=== PATIENT | female | born 1975 ===

== ENCOUNTER 2018-01-15 06:07 | Inpatient (IN) | payer BC ==
[2018-01-14 12:14] VITALS: BMI 25.4
[2018-01-15] MEDS ORDERED: Lactated Ringer's 1,000 ML IV ONE ×3 (06:45→11:08)
[2018-01-15] MEDS ORDERED: cefOXitin IV 1 gm in Dextrose 1 GM/50 ML BAG IVPB ONE (07:14)
[2018-01-15] MEDS ORDERED: Propofol 10 mg/ml Inj (20 ML) ONE (07:17)
[2018-01-15] MEDS ORDERED: Rocuronium 10 mg/ml (5 ml) ONE ×2 (07:21→09:55)
[2018-01-15] MEDS ORDERED: Lidocaine 4% (Laryng-O-Jet) Kit MM ONE (07:21)
[2018-01-15] MEDS ORDERED: ePHEDrine 50 mg/ml Inj ONE (07:21)
[2018-01-15] MEDS ORDERED: Midazolam 2 MG/2 ML VIAL ONE (07:21)
[2018-01-15] MEDS ORDERED: Succinylcholine 200 mg/10 ml Inj IV ONE (07:21)
--- NOTE | 2018-01-15 07:45 | CP.PCM.HP ---
History of Present Illness - History of Present Illness History of Present Illness: 42 y/o female with hx of BTL who has been experiencing very heavy periods and sono showed multiple fibroids Pt had requested KIMBERLY She had been counseled about other options including medical [place] myomectomy but refers wants permanent removal of wound Aware of infertility. Present on Admission - Present on Admission Any Indicators Present on Admission: No History of DVT/PE: No History of Uncontrolled Diabetes: No Urinary Catheter: No Decubitus Ulcer Present: No Review of Systems - Constitutional Additional comments: hx of anemia - Breasts Additional comments: no palpable masses or discharge Mammogram 08/2017 benign results - Reproductive: Female Reproductive:Female: As Per HPI, Heavy Menses Additional comments: c/s x2 and BTL - Menstruation Menstruation: Heavy Menses, Abnormal Vaginal Bleeding - Hematologic/Lymphatic Additional comments: hx of anemia Past Patient History - Past Medical History & Family History Past Medical History?: Yes Past Family History: Reviewed and not pertinent - Past Social History Smoking Status: Never Smoked Chewing Tobacco Use: No Alcohol: Social Drugs: Denies - CARDIAC Hx Cardiac Disorders: No Hx Heart Attack: No Hx Hypercholesterolemia: Yes - PULMONARY Hx Respiratory Disorders: No - NEUROLOGICAL Hx Neurological Disorder: No HX Cerebrovascular Accident: No Hx Transient Ischemic Attacks (TIA): No - HEENT Hx HEENT Problems: No - RENAL Hx Chronic Kidney Disease: No - ENDOCRINE/METABOLIC Hx Endocrine Disorders: No - HEMATOLOGICAL/ONCOLOGICAL Hx Blood Disorders: Yes Hx Anemia: Yes (IRON DEFICIENCY ANEMIA) Hx Blood Transfusions: No - INTEGUMENTARY Hx Dermatological Problems: No - MUSCULOSKELETAL/RHEUMATOLOGICAL Hx Musculoskeletal Disorders: No Hx Falls: No Hx Fractures: No - GASTROINTESTINAL Hx Gastrointestinal Disorders: Yes Hx Hemorrhoids: Yes (DX. 1 YEAR AGO WITH COLONOSCOPY) - GENITOURINARY/GYNECOLOGICAL Hx Genitourinary Disorders: Yes Other/Comment: BTL : 2 Para: 2 - PSYCHIATRIC Hx Psychophysiologic Disorder: No Hx Substance Use: No - SURGICAL HISTORY Hx Surgeries: Yes Hx Section: Yes (X2) Hx Tubal Ligation: Yes Other/Comment: C/S x2 - ANESTHESIA Hx Anesthesia: Yes Hx Anesthesia Reactions: No Hx Malignant Hyperthermia: No Has any member of the family had a problem w/ anesthesia?: No Meds Allergies/Adverse Reactions: Allergies Allergy/AdvReac Type Severity Reaction Status Date / Time No Known Allergies Allergy Verified 01/15/18 07:14 Physical Exam - Constitutional Appears: Well, No Acute Distress - Head Exam Head Exam: ATRAUMATIC - Neck Exam Neck exam: Positive for: Full Rom - Respiratory Exam Respiratory Exam: NORMAL BREATHING PATTERN - Cardiovascular Exam Cardiovascular Exam: REGULAR RHYTHM - GI/Abdominal Exam GI & Abdominal Exam: Normal Bowel Sounds - Exam External exam: NORMAL EXTERNAL EXAM Speculum exam: NORMAL SPECULUM EXAM Bimanual exam: Uterine Enlargement - Extremities Exam Extremities exam: Positive for: full ROM Additional comments: no edema or calf tenderness - Neurological Exam Neurological exam: Alert, Oriented x3 Results - Vital Signs Recent Vital Signs: Last Vital Signs Temp 98.4 F 01/15/18 07:00 Pulse 86 01/15/18 07:20 Resp 18 01/15/18 07:00 BP 109/72 01/15/18 07:00 Pulse Ox 100 01/15/18 07:00 Assessment & Plan - Assessment and Plan (Free Text) Assessment: severe menorrhagia Fibroid uterus Plan: For KIMBERLY - Date & Time Date: 01/15/18 Time: 07:58
[2018-01-15] MEDS ORDERED: Dexamethasone 4 mg/1 ml ONE (08:55)
[2018-01-15] MEDS ORDERED: Sodium Chloride 0.9% 1,000 ML IV ONE (09:50)
[2018-01-15] MEDS ORDERED: Neostigmine 1:1000 (1 mg/ml) Inj ONE (10:16)
[2018-01-15] MEDS ORDERED: DiphenhydrAMINE 50 mg/ml Inj IVP PRN (11:34)
[2018-01-15] MEDS ORDERED: Naloxone 0.4 mg/ml Inj (Adult) IVP PRN (11:35)
[2018-01-15] MEDS: HYDROmorphone 0.5 mg/0.5 ml ISec IVP PRN ×2 (11:55→12:06)
[2018-01-15] MEDS: Lactated Ringer's 1,000 ML IV SCH ×2 (15:32→20:04)
[2018-01-15] MEDS ORDERED: Lactated Ringer's 1,000 ML IV SCH (16:00)
[2018-01-15] MEDS: cefOXitin IV 1 gm in Dextrose 1 GM/50 ML BAG IVPB SCH (16:38)
[2018-01-16] MEDS: cefOXitin IV 1 gm in Dextrose 1 GM/50 ML BAG IVPB SCH (00:01)
[2018-01-16] MEDS: Lactated Ringer's 1,000 ML IV SCH (05:05)
[2018-01-16 07:52] LABS: HEMOGLOBIN 8.4 g/dL (12.0-16.0); MEAN CORPUSCULAR HEMOGLOBIN 28.3 pg (27.0-31.0); MEAN CORPUSCULAR HGB CONC 32.5 g/dL (33.0-37.0); RBC 2.98 Mil/uL (3.80-5.20); RED CELL DISTRIBUTION WIDTH 14.1 % (11.5-14.5); WHITE BLOOD COUNT 16.8 K/uL (4.8-10.8)
[2018-01-16] MEDS ORDERED: cefOXitin IV 1 gm in Dextrose 1 GM/50 ML BAG IVPB SCH (10:00)
--- NOTE | 2018-01-16 12:13 | CP.PCM.PN ---
Subjective - Date & Time of Evaluation Date of Evaluation: 01/16/18 Time of Evaluation: 12:11 - Subjective Subjective: Denies c/f, or vomiting but had some nausea this am, voiding well Objective - Vital Signs/Intake and Output Vital Signs (last 24 hours): Temp Pulse Resp BP Pulse Ox 97.0 F L 85 20 98/51 L 100 01/16/18 08:34 01/16/18 08:34 01/16/18 08:34 01/16/18 08:34 01/16/18 08:34 Intake and Output: 01/16/18 01/16/18 06:59 18:59 Intake Total 1670 Output Total 2750 600 Balance -1080 -600 - Medications Medications: Current Medications Lactated Ringer's (Lactated Ringer's) 1,000 mls @ 125 mls/hr IV .Q8H TAO Last Admin: 01/16/18 05:05 Dose: 125 mls/hr Naloxone HCl (Narcan) 0.1 mg IVP Q2M PRN PRN Reason: Opiate reversal Ondansetron HCl (Zofran Inj) 4 mg IVP Q4 PRN PRN Reason: Nausea/Vomiting Last Admin: 01/15/18 21:20 Dose: 4 mg - Labs Labs: 01/16/18 05:30 - Constitutional Appears: No Acute Distress - Head Exam Head Exam: ATRAUMATIC - Respiratory Exam Respiratory Exam: NORMAL BREATHING PATTERN - GI/Abdominal Exam Additional comments: soft ND depressible Dressing intact no active bleeding - Extremities Exam Extremities Exam: Full ROM Additional comments: no leg edema or calf tenderness - Neurological Exam Neurological Exam: Alert, Awake, Oriented x3 - Psychiatric Exam Psychiatric exam: Normal Affect - Additional Findings Additional findings: sitting in chair at bed side in NAD Assessment and Plan - Assessment and Plan (Free Text) Assessment: stable POD #1, anemia Plan: advance diet as tolerated and OOB and ambulation Start po iron and stool softener Continue po care and present management
[2018-01-16] MEDS: Oxycodone/Acetaminophen 5/325 mg Tab PO PRN (16:12)
[2018-01-16 17:47] VITALS: RESP 20
[2018-01-17] MEDS: Oxycodone/Acetaminophen 5/325 mg Tab PO PRN (01:24)
--- NOTE | 2018-01-17 03:32 | OP ---
PROCEDURE DATE: 01/15/2018 PREOPERATIVE DIAGNOSES: 1. Severe menorrhagia. 2. Fibroid uterus. POSTOPERATIVE DIAGNOSES: 1. Severe menorrhagia. 2. Severe massive pelvic and abdominal adhesions. PROCEDURES PERFORMED: 1. Exploratory laparotomy with total abdominal hysterectomy, left salpingo-oophorectomy. 2. Extensive lysis of adhesions. SURGEON: Bradley Ware MD [employer] CHIEF: Dr. Love who was there for the entire duration of the case. Superintendent Compressor Stations needed in the opening of abdomen assisting in the procedure and closing up the abdomen in this major abdominal case. ANESTHESIA USED: General endotracheal by Dr. Renee. ESTIMATED BLOOD LOSS: 400 mL. DRAINS USED: None. REPLACEMENT USED: None. FINDINGS: 1. Uterus appears irregular, mobile, large and bulky, about 14 to 16-week size with multiple fibroids and adhesions to the omentum and low pelvic weldon and anterior abdominal wall. 2. Severe adhesions of the bladder, the bowel and the omentum to the anterior abdominal wall and to the uterus and fibroids. 3. Left ovary engaged in adhesions and adhering to the complex fibroids on the left side. 4. Right ovary appeared grossly within normal limits to the inspection. 5. Total abdominal hysterectomy and left salpingo-oophorectomy done without any complications. 6. Lysis of adhesions performed. DESCRIPTION OF PROCEDURE: The patient was taken to the operating room and placed on the operating table in a supine position. Following induction of general endotracheal anesthesia, the patient was then replaced in a supine position. Kothari catheter was then inserted into the bladder, was draining clear fluid. Venodyne boots were applied to both legs, and the abdomen was then draped and prepped in the usual sterile manner. At this point after draping and prepping the abdomen, a Pfannenstiel incision was then made along the edges of the previous incision using sharp dissection. The incision was then extended down to the subcutaneous tissue also using sharp dissection. Fascia was then identified, was then entered at the midline. The incision of the fascia was then extended laterally on each direction using sharp dissection. At this time, the rectus muscle was then slid at the midline and layer by layer, we then proceeded to enter the abdomen. At this time, massive adhesions noted to be present involving the omentum, the uterus, and fibroids of the anterior abdominal wall. These adhesions were carefully lysed using blunt and sharp dissection. The incision in this area was then extended superiorly and inferiorly under direct visualization. Following this, the bladder was then identified, was then retracted inferiorly using the Ben retractor. The uterus was then partially exteriorized to provide better visualization. The left ovary appeared in case adherent to the uterus and fibroids and at this time, decision for the left oophorectomy was then performed. At this time, we then proceeded to identify the left infundibulopelvic ligament, which was then doubly clamped, cut and ligated using first 0 Vicryl free tie and then 0 Vicryl suture. Those isolated the ovary from the pelvic wall. The right tube and ovary appear grossly within normal limits to inspection bilaterally. The uterine ligament was then identified. It was then doubly clamped, cut and ligated using 0 Vicryl sutures. At this time, the ovarian ligament was then dissected down on the right side. It was then doubly clamped, cut, ligated using 0 Vicryl sutures. Same procedure was then performed on the contralateral side without any complications. The bladder was then pushed down. Some adhesions noted to be present and lysed using the bladder flap to the lower cervical area of the uterus. The bladder was then pushed down further, and we then proceeded to identify the right uterine artery, was then doubly clamped, cut, and ligated using 0 Vicryl. Same procedure was then carefully performed on the left lateral side without any complications. The mesosalpinx was then doubly clamped on the right side using Regulo clamps, cut, and ligated also using 0 Vicryl suture in a continuous manner. Following this, we then proceeded to do the same thing on the opposite side without any complications. At the junction of the vaginal cervical area, the vagina was then entered posteriorly, and the cervix was circumscribed on the specimen consisting of large fibroid uterus. Cervix, left tube and ovary were then removed in toto. The vaginal cuff was then held using multiple T-clamps, and angle sutures were placed on the right and left vaginal angles using 0 Vicryl suture in a [id number] manner. The vaginal cuff was then run using a 0 Vicryl suture in continuous interlocking manner. We then proceeded to close the vaginal cuff using several interrupted 0 Vicryl sutures in a [id number] manner. Hemostasis checked and found to be well secured. The pelvic cavity was then carefully irrigated using saline solution. All operative areas checked, hemostatically secured. At this time, we then proceeded to place an Intercede and a Surgicel on the vaginal cuff to obtain complete hemostasis and to prevent further adhesions. All operative areas were checked. The omentum was checked. No bleeding noted. The abdomen was then closed using 0 Vicryl suture in a continuous manner. Following this, the fascia was then identified, was then approximated using 0 PDS suture in a continuous manner. Fascia was then checked and found to be free of defects. Subcutaneous tissues were irrigated using saline solution and approximated using several interrupted 2-0 plain sutures. The skin was then approximated using skin cynthia. The patient tolerated the procedure well. There were no complications. Clear fluid noted to be present in the Kothari bag at this time. Sponge, instrument, and needle counts were correct x3. The patient was then transferred to the recovery room in satisfactory condition. Bradley Ware MD [email or web address]
[2018-01-17 05:45] VITALS: O2SAT 100
[2018-01-17 08:23] VITALS: TEMP 98.8
[2018-01-17] MEDS ORDERED: Chlorhexidine Gluconate 1 APPL/PKT TP ONE (10:27)
[2018-01-17 13:01] VITALS: BP 115/57; PULSE 90
--- NOTE | 2018-01-17 14:39 | CP.PCM.PN ---
Subjective - Date & Time of Evaluation Date of Evaluation: 01/17/18 Time of Evaluation: 14:36 - Subjective Subjective: BM+, voiding well Denies N/V, no C/F Feels better Objective - Vital Signs/Intake and Output Vital Signs (last 24 hours): Temp Pulse Resp BP Pulse Ox 98.8 F 90 20 115/57 L 100 01/17/18 13:00 01/17/18 13:00 01/17/18 13:00 01/17/18 13:00 01/17/18 13:00 - Medications Medications: Current Medications Docusate Sodium (Colace) 100 mg PO BID [facility] Last Admin: 01/17/18 08:03 Dose: 100 mg Ferrous Sulfate (Feosol) 325 mg PO BID [facility] Last Admin: 01/17/18 08:04 Dose: 325 mg Lactated Ringer's (Lactated Ringer's) 1,000 mls @ 125 mls/hr IV .Q8H [facility] Last Admin: 01/16/18 05:05 Dose: 125 mls/hr Ibuprofen (Motrin Tab) 600 mg PO Q6 PRN PRN Reason: Pain, Mild (1-3) Last Admin: 01/17/18 06:57 Dose: 600 mg Naloxone HCl (Narcan) 0.1 mg IVP Q2M PRN PRN Reason: Opiate reversal Ondansetron HCl (Zofran Inj) 4 mg IVP Q4 PRN PRN Reason: Nausea/Vomiting Last Admin: 01/15/18 21:20 Dose: 4 mg Oxycodone/Acetaminophen (Percocet 5/325 Mg Tab) 1 tab PO Q4 PRN PRN Reason: Pain, moderate (4-7) Stop: 01/19/18 16:00 Last Admin: 01/17/18 01:24 Dose: 1 tab - Labs Labs: 01/16/18 05:30 - Constitutional Appears: Well, No Acute Distress - Head Exam Head Exam: ATRAUMATIC - Respiratory Exam Respiratory Exam: NORMAL BREATHING PATTERN - Cardiovascular Exam Cardiovascular Exam: REGULAR RHYTHM - GI/Abdominal Exam Additional comments: soft, depressible not distended no rebound Dressing intact removed cynthia in place no suppt or active bleeding - Extremities Exam Additional comments: no leg edema or calf tenderness - Neurological Exam Neurological Exam: Alert, Awake, Oriented x3 Assessment and Plan - Assessment and Plan (Free Text) Assessment: stable Plan: D/C home in stable and improved conditiion and will follow up office 1 wk Rx for percocet given
--- NOTE | 2018-01-17 14:44 | CP.PCM.DIS ---
Provider - Provider Date of Admission: 01/15/18 11:55 Attending physician: Bradley Ware MD Primary care physician: Johnathan Ross MD Time Spent in preparation of Discharge (in minutes): 5 Diagnosis - Discharge Diagnosis (1) Leiomyoma of uterus Status: Chronic (2) Menorrhagia Status: Acute (3) Pelvic adhesions Status: Chronic Hospital Course - Lab Results Lab Results: Most Recent Lab Values WBC 16.8 K/uL (4.8-10.8) H D 01/16/18 05:30 RBC 2.98 Mil/uL (3.80-5.20) L 01/16/18 05:30 Hgb 8.4 g/dL (12.0-16.0) L D 01/16/18 05:30 Hct 25.9 % (34.0-47.0) L 01/16/18 05:30 MCV 87.0 fl (81.0-99.0) 01/16/18 05:30 MCH 28.3 pg (27.0-31.0) 01/16/18 05:30 MCHC 32.5 g/dL (33.0-37.0) L 01/16/18 05:30 RDW 14.1 % (11.5-14.5) 01/16/18 05:30 Plt Count 400 K/uL (130-400) 01/16/18 05:30 - Hospital Course Hospital Course: underwent KIMBERLY LSO and extensive lysis of adhessions and post op course was uneventfull Discharge Exam - Head Exam Head Exam: ATRAUMATIC - Neck Exam Neck exam: Full Rom - Respiratory Exam Respiratory Exam: NORMAL BREATHING PATTERN - GI/Abdominal Exam GI & Abdominal Exam: Normal Bowel Sounds, Soft Additional comments: Incision clean and dry no active bleeding or sign of infection - Extremities Exam Extremities exam: full ROM Additional comments: no leg edema or calf tenderness - Back Exam Back exam: FULL ROM - Neurological Exam Neurological exam: Alert, Normal Gait, Oriented x3 - Psychiatric Exam Psychiatric exam: Normal Affect Discharge Plan - Follow Up Plan Instructions: Hysterectomy (DC) Additional Instructions: pelvic and bed rest Referrals: Johnathan Ross MD [Primary Care Provider] -
== END 2018-01-17 15:30 | disposition home or self-care (01) | DRG 743 ==
LOC: H.OPSURG 06:07 → H.PEDS 11:55
PROVIDERS: ADMIT Specialist; ATTEND Specialist
PROC: 0UT10ZZ Resection of Left Ovary, Open Approach (ICD-10-PCS; 2018-01-15)
PROC: 0UT60ZZ Resection of Left Fallopian Tube, Open Approach (ICD-10-PCS; 2018-01-15)
PROC: 0DNU0ZZ Release Omentum, Open Approach (ICD-10-PCS; 2018-01-15)
PROC: 0DNW0ZZ Release Peritoneum, Open Approach (ICD-10-PCS; 2018-01-15)
PROC: 0UT90ZZ Resection of Uterus, Open Approach (ICD-10-PCS; principal; 2018-01-15 07:45)
DX: D25.9 Leiomyoma of uterus, unspecified (principal); N73.6 Female pelvic peritoneal adhesions (postinfective); N92.0 Excessive and frequent menstruation with regular cycle; D50.9 Iron deficiency anemia, unspecified; E78.00 Pure hypercholesterolemia, unspecified; Z98.51 Tubal ligation status; Z98.891 History of uterine scar from previous surgery

== ENCOUNTER 2018-01-23 08:34 | Inpatient (IN) | payer BC ==
[2018-01-23 08:46] VITALS: BMI 24.5
--- NOTE | 2018-01-23 09:44 | ED PDOC ---
HPI: Abdomen Time Seen by Provider: 01/23/18 08:56 Chief Complaint (Nursing): Abdominal Pain Chief Complaint (Provider): Abdominal Pain History Per: Patient History/Exam Limitations: no limitations Current Symptoms Are (Timing): Still Present Last Bowel Movement: Yesterday Additional Complaint(s): 42-year-old female, with a PMHx of heavy vaginal bleeding and fibroids, presents to ED complaining of abdominal pain s/p abdominal hysterectomy 9 days ago () by Dr. Ware. Pt reports she was discharged uneventfully and started on ibuprofen and percocet for pain. Pt reports she used 9 tablets of percocets over the past 9 days. Pt reports she has been eating okay and since surgery, she only had 3 bowel movements. Pt reports 1 bowel movement was yesterday that required use of enema, which result in large bowel movement yesterday. Pt reports she woke up today with acute onset of pain and nausea. Pt is not sure if she vomited. Reports abdominal pain is diffuse that seems to go to her back. (-) fever, (-) chills, (+) Dysuria, (-) Hematuria. PMD: No Family Provider Past Medical History Reviewed: Historical Data, Nursing Documentation, Vital Signs Vital Signs: Last Vital Signs Temp 98.9 F 01/24/18 02:39 Pulse 112 H 01/24/18 02:46 Resp 20 01/24/18 02:46 BP 98/59 L 01/24/18 02:39 Pulse Ox 98 01/24/18 02:46 - Medical History PMH: Anemia (IRON DEFICIENCY ANEMIA), Hypercholesterolemia Denies: Colonic Polyps, Fractures, Chronic Kidney Disease, TIA - Surgical History Surgical History: Denies: Endoscopy - Family History Family History: States: No Known Family Hx - Social History Current smoker - smoking cessation education provided: No Alcohol: None Drugs: Denies - Home Medications Home Medications: Ambulatory Orders Medication Instructions Recorded Simvastatin [Zocor] 40 mg PO HS 08/26/16 Ibuprofen [Motrin] 600 mg PO Q6 PRN 01/23/18 oxyCODONE/Acetaminophen [Percocet 1 tab PO Q4 PRN 01/23/18 5/325 mg Tab] - Allergies Allergies/Adverse Reactions: Allergies Allergy/AdvReac Type Severity Reaction Status Date / Time No Known Allergies Allergy Verified 01/23/18 08:54 Review of Systems ROS Statement: Except As Marked, All Systems Reviewed And Found Negative Constitutional: Negative for: Fever, Chills Gastrointestinal: Positive for: Nausea, Abdominal Pain Genitourinary Female: Positive for: Dysuria. Negative for: Hematuria Physical Exam - Reviewed Nursing Documentation Reviewed: Yes Vital Signs Reviewed: Yes - Physical Exam Appears: Positive for: In Acute Distress (Moderate discomfort from pain) Head Exam: Positive for: ATRAUMATIC, NORMAL INSPECTION, NORMOCEPHALIC Skin: Positive for: Normal Color, Warm, Dry Eye Exam: Positive for: EOMI, Normal appearance, PERRL ENT: Positive for: Normal ENT Inspection Neck: Positive for: Supple Cardiovascular/Chest: Positive for: Regular Rate, Rhythm (S1 and S2 heart sounds present) Respiratory: Positive for: Normal Breath Sounds (Lungs clear). Negative for: Respiratory Distress Gastrointestinal/Abdominal: Positive for: Tenderness (Tenderness to palpation and percusion ), Distended (Mild ) Back: Positive for: Normal Inspection Extremity: Positive for: Normal ROM. Negative for: Pedal Edema, Deformity, Swelling Neurologic/Psych: Positive for: Alert, Oriented (x 3) - Laboratory Results Result Diagrams: 01/24/18 06:35 01/24/18 06:35 - ECG O2 Sat by Pulse Oximetry: 98 (RA) Pulse Ox Interpretation: Normal Medical Decision Making Medical Decision Making: Time: 09:27 Impression(s): Abdominal Pain r/o obstruction, UTI, pain from her enema. Plan: - CMP - Lipase - ED Urine Dipstick - CBC (with differentials) - Obstructive Series X-Ray - Toradol 30 mg IV - Zofran 4 mg IVP Time: 11:00 - Enulose 20 gm PO Time: 11:36 Obstructive Series X-Ray FINDINGS: CHEST: Lungs: Clear. Cardiovascular: Normal size heart. No pulmonary vascular congestion. Pleura: No pleural fluid. No pneumothorax. Other findings: None. ABDOMEN AND PELVIS: Bowel: Unremarkable bowel gas pattern. No evidence of mechanical obstruction. Free air: None. Bones: Mild S-shaped thoracolumbar scoliosis. Other findings: Lower pelvic transverse skin cynthia. IMPRESSION: Unremarkable radiographs of chest and abdomen. No evidence of mechanical bowel obstruction. Time: 12:41 - CT Abdomen and Pelvis PO and IV Contrast - Omnipaque 240 (50 ML) PO - Abdomen Ultrasound Time: 14:08 Abdomen Ultrasound FINDINGS: LIVER: Measures 14.4 cm. Normal echogenicity of the liver parenchyma. No mass. No intrahepatic bile duct dilatation. GALLBLADDER: Unremarkable. No gallstones. COMMON BILE DUCT: Measures 2 mm. No stones. No dilatation. PANCREAS: Not well-visualized. RIGHT KIDNEY: Measures 8.9 x 3.0 x 3.7cm. Normal echogenicity. No calculus, mass, or hydronephrosis. LEFT KIDNEY: Measures 8.0 x 5.0 x 3.7cm. Normal echogenicity. No calculus, mass, or hydronephrosis. SPLEEN: Normal in size and contour. No mass. AORTA: No aneurysmal dilatation. IVC: Unremarkable. OTHER FINDINGS: None. IMPRESSION: Unremarkable abdominal sonogram. Patient signed out to Dr. Hwang @ 15:00, pending CT scan, re-evaluation and final disposition. Scribe Attestation: Documented by Arsenio Dyer, acting as a scribe for Mi Purdy MD. Provider Scribe Attestation: All medical record entries made by the Scribe were at my direction and personally dictated by me. I have reviewed the chart and agree that the record accurately reflects my personal performance of the history, physical exam, medical decision making, and the department course for this patient. I have also personally directed, reviewed, and agree with the discharge instructions and disposition. Disposition - Clinical Impression Clinical Impression: Abdominal pain - Patient ED Disposition Is Patient to be Admitted: Transfer of Care - Disposition Disposition: Transfer of Care Disposition Time: 15:00 Condition: FAIR Patient Signed Over To: Janiya Hwang (pending CT and re-evaluation) - POA Present On Arrival: None
[2018-01-23 10:03] LABS: BASO % 0.2 % (0.0-2.0); HEMOGLOBIN 9.1 g/dL (12.0-16.0); LYMPH # 0.7 K/uL (1.0-4.3); LYMPH % 4.6 % (20.0-40.0); MEAN CELL VOLUME 82.5 fl (81.0-99.0); MEAN CORPUSCULAR HEMOGLOBIN 27.1 pg (27.0-31.0); MEAN CORPUSCULAR HGB CONC 32.9 g/dL (33.0-37.0); MEAN PLATELET VOLUME 7.7 fl (7.2-11.7); MONO # 0.7 K/uL (0.0-0.8); MONO % 4.9 % (0.0-10.0); NEUT # 13.3 K/uL (1.8-7.0); NEUT % 90.3 % (50.0-75.0); PLATELET COUNT 632 K/uL (130-400); RBC 3.37 Mil/uL (3.80-5.20); RED CELL DISTRIBUTION WIDTH 15.9 % (11.5-14.5); WHITE BLOOD COUNT 14.8 K/uL (4.8-10.8)
[2018-01-23 10:43] LABS: ALB/GLOB RATIO 1.1 (1.0-2.1); ALBUMIN 4.2 g/dL (3.5-5.0); ALT/SGPT 204 U/L (9-52); AST/SGOT 143 U/L (14-36); BLOOD UREA NITROGEN 10 mg/dl (7-17); CALCIUM 9.6 mg/dL (8.4-10.2); GFR AFRICAN-AMERICAN > 60; GFR NON-AFRICAN AMERICAN 55; LIPASE 37 U/L (23-300)
--- NOTE | 2018-01-23 11:37 | RAD ---
PROCEDURE: Radiographs of the chest and abdomen (obstructive series) HISTORY: abd pain; s/p hysterectomy 2 weeks ago COMPARISON: No prior. TECHNIQUE: AP radiograph of the chest, with upright and supine radiographs of the abdomen. FINDINGS: CHEST: Lungs: Clear. Cardiovascular: Normal size heart. No pulmonary vascular congestion. Pleura: No pleural fluid. No pneumothorax. Other findings: None. ABDOMEN AND PELVIS: Bowel: Unremarkable bowel gas pattern. No evidence of mechanical obstruction. Free air: None. Bones: Mild S-shaped thoracolumbar scoliosis. Other findings: Lower pelvic transverse skin cynthia. IMPRESSION: Unremarkable radiographs of chest and abdomen. No evidence of mechanical bowel obstruction.
[2018-01-23 11:40] LABS: ANISOCYTOSIS SLIGHT; BANDS 7 % (0-2); BASOPHIL 1 % (0-2); LYMPHOCYTE 4 % (20-50); MONOCYTE 7 % (0-10); NEUTROPHIL 81 % (42-75); PLATELET ESTIMATE INCREASED (NORMAL); TOTAL CELLS COUNTED 100
[2018-01-23 11:42] LABS: LARGE PLATELETS PRESENT
[2018-01-23] MEDS ORDERED: Iohexol 240 (50 ml) PO ONE (12:41)
[2018-01-23] MEDS ORDERED: Iohexol 240 (50 ml) ONE (13:15)
--- NOTE | 2018-01-23 14:10 | US ---
HISTORY: abd pain with elevated LFTs COMPARISON: None. TECHNIQUE: Sonographic evaluation of the abdomen. FINDINGS: LIVER: Measures 14.4 cm. Normal echogenicity of the liver parenchyma. No mass. No intrahepatic bile duct dilatation. GALLBLADDER: Unremarkable. No gallstones. COMMON BILE DUCT: Measures 2 mm. No stones. No dilatation. PANCREAS: Not well-visualized. RIGHT KIDNEY: Measures 8.9 x 3.0 x 3.7cm. Normal echogenicity. No calculus, mass, or hydronephrosis. LEFT KIDNEY: Measures 8.0 x 5.0 x 3.7cm. Normal echogenicity. No calculus, mass, or hydronephrosis. SPLEEN: Normal in size and contour. No mass. AORTA: No aneurysmal dilatation. IVC: Unremarkable. OTHER FINDINGS: None. IMPRESSION: Unremarkable abdominal sonogram.
--- NOTE | 2018-01-23 15:04 | ED PDOC ---
- Laboratory Results Result Diagrams: 01/24/18 06:35 01/24/18 06:35 - ECG O2 Sat by Pulse Oximetry: 98 (RA) Medical Decision Making Medical Decision Making: Time: 15:00 Patient care endorsed to me from Dr. Purdy pending CT scan, reevaluation, and final disposition. Time: 15:50 CT Abdomen and Pelvis PO and IV Contrast FINDINGS: LOWER THORAX: Unremarkable. LIVER: Unremarkable. No gross lesion or ductal dilatation. GALLBLADDER AND BILE DUCTS: Unremarkable. PANCREAS: Unremarkable. No gross lesion or ductal dilatation. SPLEEN: Unremarkable. ADRENALS: Unremarkable. No mass. KIDNEYS AND URETERS: Unremarkable. No hydronephrosis. No solid mass. VASCULATURE: Unremarkable. No aortic aneurysm. BOWEL: Unremarkable. No obstruction. No gross mural thickening. APPENDIX: Normal appendix. PERITONEUM: 5.2 x 4.2 x 7.0 cm lobulated gas and fluid-filled collection in the surgical bed just superior to the bladder. 9.2 x 2.0 cm seroma in the anterior abdominal wall soft tissues. Small volume fluid in the deep pelvis with mild enhancement. Transverse oriented surgical cynthia. LYMPH NODES: Unremarkable. No enlarged lymph nodes. BLADDER: Underdistended with irregularly thickened wall, likely reactive. REPRODUCTIVE: Hysterectomy. Involuting right corpus luteal follicle. BONES: No acute fracture. OTHER FINDINGS: Delayed images do not show any intravenous or enteric contrast extravasation. IMPRESSION: 5.2 x 4.2 x 7.0 cm lobulated postoperative pelvic abscess. 9.2 x 2.0 cm anterior abdominal wall soft tissue seroma. Small volume fluid in the pelvis with mild enhancement compatible indicating peritonitis. Findings conveyed to ER embossing clerk by Dr. Marshall at 3:45 pm on 01/23/[address] Hwang. Time: 16:00 ED Provider discussed case with Dr. Ware. Pt will be admitted to his service. IV and Antibiotics started. - Blood Culture - VBG Shock Panel - Dextrose 5%-0.9% NS 500 ml - Sodium Chloride 0.9% 1,000 ml IV 1,000 mls/hr - Vancomycin Inj 1 gm Sodium Chloride 0.9% 250 ml IV - Zosyn 3.375 gm Sodium Chloride 0.9% 100 ml IV - NPO Diet Discussed findings and plan of care with patient. Labs demonstrate sepsis, dehydration. DW Dr Ware again and place patient on telemetry. Dr Yates for surgical consult. [address] Sutton residential program coordinator for Dr Yates Surgery consult. 1819 Evaluated by Surgery consults, pt for interventional radiology drainage tonight. Scribe Attestation: Documented by Ren Livingston and Arsenio Dyer, acting as scribes for Janiya Hwang MD. Provider Scribe Attestation: All medical record entries made by the Scribe were at my direction and personally dictated by me. I have reviewed the chart and agree that the record accurately reflects my personal performance of the history, physical exam, medical decision making, and the department course for this patient. I have also personally directed, reviewed, and agree with the discharge instructions and disposition. Disposition - Clinical Impression Clinical Impression: Pelvic abscess in female, Sepsis - POA Present On Arrival: Surgical Site Infection - Disposition Disposition: Admitted as In-Patient Disposition Time: 16:00 Condition: FAIR
[2018-01-23] MEDS ORDERED: Sodium Chloride 0.9% 50 ML IV ONE (15:05)
[2018-01-23] MEDS ORDERED: Iohexol 300 100 ML IJ ONE (15:05)
--- NOTE | 2018-01-23 15:51 | CT ---
PROCEDURE: CT Abdomen and Pelvis with contrast HISTORY: abd pain s/p hysterectomy COMPARISON: None. TECHNIQUE: Contrast dose: 98 mL Omnipaque 300 Radiation dose: Total exam DLP = 730.9 mGy-cm. This CT exam was performed using one or more of the following dose reduction techniques: Automated exposure control, adjustment of the mA and/or kV according to patient size, and/or use of iterative reconstruction technique. FINDINGS: LOWER THORAX: Unremarkable. LIVER: Unremarkable. No gross lesion or ductal dilatation. GALLBLADDER AND BILE DUCTS: Unremarkable. PANCREAS: Unremarkable. No gross lesion or ductal dilatation. SPLEEN: Unremarkable. ADRENALS: Unremarkable. No mass. KIDNEYS AND URETERS: Unremarkable. No hydronephrosis. No solid mass. VASCULATURE: Unremarkable. No aortic aneurysm. BOWEL: Unremarkable. No obstruction. No gross mural thickening. APPENDIX: Normal appendix. PERITONEUM: 5.2 x 4.2 x 7.0 cm lobulated gas and fluid-filled collection in the surgical bed just superior to the bladder. 9.2 x 2.0 cm seroma in the anterior abdominal wall soft tissues. Small volume fluid in the deep pelvis with mild enhancement. Transverse oriented surgical cynthia. LYMPH NODES: Unremarkable. No enlarged lymph nodes. BLADDER: Underdistended with irregularly thickened wall, likely reactive. REPRODUCTIVE: Hysterectomy. Involuting right corpus luteal follicle. BONES: No acute fracture. OTHER FINDINGS: Delayed images do not show any intravenous or enteric contrast extravasation. IMPRESSION: 5.2 x 4.2 x 7.0 cm lobulated postoperative pelvic abscess. 9.2 x 2.0 cm anterior abdominal wall soft tissue seroma. Small volume fluid in the pelvis with mild enhancement compatible indicating peritonitis. Findings conveyed to ER amortization clerk by Dr. Marshall at 3:45 pm on 01/23/[address] Hwang.
[2018-01-23] MEDS ORDERED: Sodium Chloride 0.9% 1,000 ML IV STA (16:04)
[2018-01-23] MEDS ORDERED: Piperacillin/Tazobact 3.375 GM in Sodium Chloride 0.9% 100 ML IV STA (16:06)
[2018-01-23 16:22] LABS: VENOUS BLOOD GAS BASE EXCESS -0.2 mmol/L (0.0-2.0); VENOUS BLOOD GAS PCO2 41 mmHg (40-60); VENOUS BLOOD GAS PO2 16 mm/Hg (30-55); VENOUS BLOOD PH 7.39 (7.32-7.43)
[2018-01-23] MEDS ORDERED: Sodium Chloride 0.9% 2,000 ML IV STA (16:38)
[2018-01-23] MEDS ORDERED: Piperacillin/Tazobact 3.375 gm Inj IVPB ONE (17:31)
[2018-01-23] MEDS ORDERED: Vancomycin 1 g Inj ONE (17:31)
--- NOTE | 2018-01-23 18:04 | CP.PCM.CON ---
History of Present Illness - History of Present Illness History of Present Illness: General Surgery - Dr. Yates Pt is a 42yo F w/ hx of Anemia, Hyperlipidemia, and recently s/p Hysterectomy on 01/15, who presents to ED today with worsening abdominal/pelvic pain. Pt states that she's had the pain since surgery, but initially it was only mild and she thought that it was just gas pains. Today the pain became significantly worse, waking her up this morning around 6AM. She describes it as sharp stabbing pains located in the lower right abdomen and pelvic region, non-radiating, 10/10 at worst when she tries to move. She admits to subjective fevers/chills, no recorded temperature. Pt denies any Nausea/Vomiting, Diarrhea /Constipation, Dysuria/Hematuria. PMH: MARGI, HL PSH: Hysterectomy, Csection x2 Meds: Simvastatin, Iron infusions NKDA Pt. was seen in the ED. Vitals stable, Tachycardic in the 90s, Mildly hypotensive with SBp in 90s. Labs show leukocytosis, anemia, elevated LFTs. A CT abd/pelvis was done which showed an approx [id number] pelvic fluid collection. Review of Systems - Review of Systems All systems: reviewed and no additional remarkable complaints except (as per HPI ) Past Patient History - Past Medical History & Family History Past Medical History?: Yes - Past Social History Alcohol: None Drugs: Denies - CARDIAC Hx Hypercholesterolemia: Yes - PULMONARY Hx Respiratory Disorders: No - NEUROLOGICAL Hx Transient Ischemic Attacks (TIA): No - HEENT Hx HEENT Problems: No - RENAL Hx Chronic Kidney Disease: No - ENDOCRINE/METABOLIC Hx Endocrine Disorders: No - HEMATOLOGICAL/ONCOLOGICAL Hx Anemia: Yes (IRON DEFICIENCY ANEMIA) - INTEGUMENTARY Hx Dermatological Problems: No - MUSCULOSKELETAL/RHEUMATOLOGICAL Hx Fractures: No - GASTROINTESTINAL Hx Gastrointestinal Disorders: Yes Hx Hemorrhoids: Yes (DX. 1 YEAR AGO WITH COLONOSCOPY) - GENITOURINARY/GYNECOLOGICAL Hx Genitourinary Disorders: Yes Other/Comment: BTL - PSYCHIATRIC Hx Psychophysiologic Disorder: No Hx Substance Use: No - SURGICAL HISTORY Hx Surgeries: Yes Hx Section: Yes (X2) Hx Tubal Ligation: Yes Other/Comment: C/S x2 - ANESTHESIA Hx Anesthesia: Yes Hx Anesthesia Reactions: No Hx Malignant Hyperthermia: No Meds Allergies/Adverse Reactions: Allergies Allergy/AdvReac Type Severity Reaction Status Date / Time No Known Allergies Allergy Verified 01/23/18 08:54 - Medications Medications: Current Medications Dextrose/Sodium Chloride (Dextrose 5%-0.9% Ns 500 Ml) 1,000 mls @ 100 mls/hr IV .Q10H TAO Sodium Chloride (Sodium Chloride 0.9%) 2,000 mls @ 1,000 mls/hr IV .Q2H STA Stop: 01/23/18 18:03 Last Admin: 01/23/18 17:25 Dose: 1,000 mls/hr Physical Exam - Constitutional Appears: In Acute Distress (in mod-severe pain) - Head Exam Head Exam: ATRAUMATIC, NORMAL INSPECTION, NORMOCEPHALIC - Eye Exam Eye Exam: Normal appearance - ENT Exam ENT Exam: Mucous Membranes Dry - Respiratory Exam Respiratory Exam: NORMAL BREATHING PATTERN. absent: Respiratory Distress - Cardiovascular Exam Cardiovascular Exam: Tachycardia, REGULAR RHYTHM - GI/Abdominal Exam GI & Abdominal Exam: Distended, Firm (pelvic), Guarding, Rebound, Soft, Tenderness (lower abdomen b/l and suprapubic). absent: Rigid - Neurological Exam Neurological exam: Alert, Oriented x3 - Psychiatric Exam Psychiatric exam: Normal Affect, Normal Mood - Skin Skin Exam: Dry, Intact Results - Vital Signs Recent Vital Signs: Last Vital Signs Temp 98.9 F 01/23/18 16:25 Pulse 101 H 01/23/18 16:25 Resp 16 01/23/18 16:25 BP 97/64 L 01/23/18 16:25 Pulse Ox 99 01/23/18 16:25 - Labs Result Diagrams: 01/23/18 09:45 01/23/18 09:45 Labs: Laboratory Results - last 24 hr 01/23/18 01/23/18 01/23/18 09:45 09:45 16:11 WBC 14.8 H RBC 3.37 L Hgb 9.1 L Hct 27.8 L MCV 82.5 D MCH 27.1 MCHC 32.9 L RDW 15.9 H Plt Count 632 H D MPV 7.7 Neut % (Auto) 90.3 H Lymph % (Auto) 4.6 L [place] % (Auto) 4.9 Eos % (Auto) 0.0 Baso % (Auto) 0.2 Neut # (Auto) 13.3 H Lymph # (Auto) 0.7 L [place] # (Auto) 0.7 Eos # (Auto) 0.0 Baso # (Auto) 0.0 Neutrophils % (Manual) 81 H Band Neutrophils % 7 H Lymphocytes % (Manual) 4 L Monocytes % (Manual) 7 Basophils % (Manual) 1 Platelet Estimate Increased H Large Platelets Present Anisocytosis (manual) Slight pO2 16 L VBG pH 7.39 VBG pCO2 41 VBG HCO3 23.3 VBG Total CO2 26.1 VBG O2 Sat (Calc) 18.0 L VBG Base Excess -0.2 L VBG Potassium 4.0 Glucose 150 H Lactate 2.6 H FiO2 21.0 Sodium 139 133.0 Potassium 3.5 L Chloride 103 100.0 Carbon Dioxide 21 L Anion Gap 19 BUN 10 Creatinine 1.1 Est GFR ( Amer) > 60 Est GFR (Non-Af Amer) 55 Random Glucose 123 H Calcium 9.6 Total Bilirubin 0.8 AST 143 H D ALT 204 H D Alkaline Phosphatase 283 H D Total Protein 7.9 Albumin 4.2 Globulin 3.7 Albumin/Globulin Ratio 1.1 Lipase 37 Venous Blood Potassium 4.0 - Imaging and Cardiology CT scan - abdomen Status: Image reviewed by me, Report reviewed by me Assessment & Plan - Assessment and Plan (Free Text) Assessment: 42yo F w/ pelvic abscess s/p Hysterectomy on 01/15 -Maintain NPO, IVF -IV Abx: Zosyn -Pain control and anti-emetics prn -IR consulted for drainage, spoke to Dr. Plummer who will try to come in tonight to drain the collection -Will continue to follow DW Dr. Milan Sutton PGY4
[2018-01-23] MEDS ORDERED: HYDROmorphone 0.5 mg/0.5 ml ISec IVP PRN (18:19)
--- NOTE | 2018-01-23 18:30 | CP.PCM.CON ---
History of Present Illness - History of Present Illness History of Present Illness: General Surgery Agree with resident's note and physical exam. 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 Pt denies syncopizing. Pt for IR drainage tonight. Continue antibiotics Continue IVF Monitor pain control and BP, adjust pain medications as needed. Past Patient History - Past Medical History & Family History Past Medical History?: Yes - Past Social History Alcohol: None Drugs: Denies - CARDIAC Hx Hypercholesterolemia: Yes - PULMONARY Hx Respiratory Disorders: No - NEUROLOGICAL Hx Transient Ischemic Attacks (TIA): No - HEENT Hx HEENT Problems: No - RENAL Hx Chronic Kidney Disease: No - ENDOCRINE/METABOLIC Hx Endocrine Disorders: No - HEMATOLOGICAL/ONCOLOGICAL Hx Anemia: Yes (IRON DEFICIENCY ANEMIA) - INTEGUMENTARY Hx Dermatological Problems: No - MUSCULOSKELETAL/RHEUMATOLOGICAL Hx Fractures: No - GASTROINTESTINAL Hx Gastrointestinal Disorders: Yes Hx Hemorrhoids: Yes (DX. 1 YEAR AGO WITH COLONOSCOPY) - GENITOURINARY/GYNECOLOGICAL Hx Genitourinary Disorders: Yes Other/Comment: BTL - PSYCHIATRIC Hx Psychophysiologic Disorder: No Hx Substance Use: No - SURGICAL HISTORY Hx Surgeries: Yes Hx Section: Yes (X2) Hx Tubal Ligation: Yes Other/Comment: C/S x2 - ANESTHESIA Hx Anesthesia: Yes Hx Anesthesia Reactions: No Hx Malignant Hyperthermia: No Meds Allergies/Adverse Reactions: Allergies Allergy/AdvReac Type Severity Reaction Status Date / Time No Known Allergies Allergy Verified 01/23/18 08:54 - Medications Medications: Current Medications Hydromorphone HCl (Dilaudid) 1 mg IVP Q3H PRN PRN Reason: Pain, moderate (4-7) Dextrose/Sodium Chloride (Dextrose 5%-0.9% Ns 500 Ml) 1,000 mls @ 100 mls/hr IV .Q10H TAO Piperacillin Sod/Tazobactam (Sod 3.375 gm/ Sodium Chloride) 100 mls @ 100 mls/ hr IVPB Q6 TAO PRN Reason: Protocol Ondansetron HCl (Zofran Inj) 4 mg IVP Q4 PRN PRN Reason: Nausea/Vomiting Results - Vital Signs Recent Vital Signs: Last Vital Signs Temp 98.9 F 01/23/18 16:25 Pulse 98 H 01/23/18 18:06 Resp 18 01/23/18 18:06 BP 97/65 L 01/23/18 18:06 Pulse Ox 100 01/23/18 17:53 - Labs Result Diagrams: 01/23/18 09:45 01/23/18 09:45 Labs: Laboratory Results - last 24 hr 01/23/18 01/23/18 01/23/18 09:45 09:45 16:11 WBC 14.8 H RBC 3.37 L Hgb 9.1 L Hct 27.8 L MCV 82.5 D MCH 27.1 MCHC 32.9 L RDW 15.9 H Plt Count 632 H D MPV 7.7 Neut % (Auto) 90.3 H Lymph % (Auto) 4.6 L [place] % (Auto) 4.9 Eos % (Auto) 0.0 Baso % (Auto) 0.2 Neut # (Auto) 13.3 H Lymph # (Auto) 0.7 L [place] # (Auto) 0.7 Eos # (Auto) 0.0 Baso # (Auto) 0.0 Neutrophils % (Manual) 81 H Band Neutrophils % 7 H Lymphocytes % (Manual) 4 L Monocytes % (Manual) 7 Basophils % (Manual) 1 Platelet Estimate Increased H Large Platelets Present Anisocytosis (manual) Slight pO2 16 L VBG pH 7.39 VBG pCO2 41 VBG HCO3 23.3 VBG Total CO2 26.1 VBG O2 Sat (Calc) 18.0 L VBG Base Excess -0.2 L VBG Potassium 4.0 Glucose 150 H Lactate 2.6 H FiO2 21.0 Sodium 139 133.0 Potassium 3.5 L Chloride 103 100.0 Carbon Dioxide 21 L Anion Gap 19 BUN 10 Creatinine 1.1 Est GFR ( Amer) > 60 Est GFR (Non-Af Amer) 55 Random Glucose 123 H Calcium 9.6 Total Bilirubin 0.8 AST 143 H D ALT 204 H D Alkaline Phosphatase 283 H D Total Protein 7.9 Albumin 4.2 Globulin 3.7 Albumin/Globulin Ratio 1.1 Lipase 37 Venous Blood Potassium 4.0
[2018-01-23 19:18] LABS: INR 1.2 (0.9-1.2); PARTIAL THROMBOPLASTIN TIME 28.4 Seconds (25.6-37.1); PROTHROMBIN TIME 13.6 Seconds (9.8-13.1)
[2018-01-23] MEDS ORDERED: Lidocaine 1% Inj (20ml) ONE (20:13)
[2018-01-23] MEDS ORDERED: Sodium Chloride 0.9% 100 ML ONE (20:13)
--- NOTE | 2018-01-23 20:48 | PCM.SURG1 ---
Surgeon's Initial Post Op Note - Surgeon's Notes Surgeon: Elder Downing MD Tape Recorder Mechanic: NONE Type of Anesthesia: Local Pre-Operative Diagnosis: Pelvic abscess Operative Findings: CT showed complex pelvic collection Post-Operative Diagnosis: Pelvic abscess Operation Performed: CT guided placement of an 8 fr drainage catheter within anterior pelvic collection. 20 cc of purulent drainage removed. Specimen/Specimens Removed: 20 cc Estimated Blood Loss: EBL {In ML}: 1 Blood Products Given: N/A Post-Op Condition: Fair Date of Surgery/Procedure: 01/23/18 Time of Surgery/Procedure: 20:40
[2018-01-23] MEDS: HYDROmorphone 0.5 mg/0.5 ml ISec IVP PRN (22:40)
[2018-01-23] MEDS: Piperacillin/Tazobact 3.375 GM in Sodium Chloride 0.9% 100 ML IVPB SCH (23:06)
[2018-01-24] MEDS: HYDROmorphone 0.5 mg/0.5 ml ISec IVP PRN ×3 (01:52→15:36)
[2018-01-24] MEDS: Piperacillin/Tazobact 3.375 GM in Sodium Chloride 0.9% 100 ML IVPB SCH ×4 (04:00→22:09)
[2018-01-24 08:09] LABS: BASO % 0.1 % (0.0-2.0); EOS % 0.1 % (0.0-4.0); HEMOGLOBIN 7.6 g/dL (12.0-16.0); LYMPH # 0.8 K/uL (1.0-4.3); LYMPH % 4.3 % (20.0-40.0); MEAN CELL VOLUME 83.6 fl (81.0-99.0); MEAN CORPUSCULAR HGB CONC 32.3 g/dL (33.0-37.0); MEAN PLATELET VOLUME 8.1 fl (7.2-11.7); MONO # 1.6 K/uL (0.0-0.8); MONO % 8.5 % (0.0-10.0); NEUT # 16.7 K/uL (1.8-7.0); RBC 2.82 Mil/uL (3.80-5.20); RED CELL DISTRIBUTION WIDTH 15.5 % (11.5-14.5); WHITE BLOOD COUNT 19.2 K/uL (4.8-10.8)
[2018-01-24 08:37] LABS: ALBUMIN 3.4 g/dL (3.5-5.0); ALT/SGPT 277 U/L (9-52); AST/SGOT 140 U/L (14-36); BLOOD UREA NITROGEN 5 mg/dl (7-17); CALCIUM 8.6 mg/dL (8.4-10.2); GFR AFRICAN-AMERICAN > 60; GFR NON-AFRICAN AMERICAN > 60
--- NOTE | 2018-01-24 08:45 | CP.PCM.PN ---
Subjective - Date & Time of Evaluation Date of Evaluation: 01/24/18 Time of Evaluation: 08:44 - Subjective Subjective: General surgery progress note for Dr. Candie Perez, PGY-2 Pt S & E at bedside at 0735 Pt reports abdominal pain overnight- improved. Denies current N & V, F & C, other complaints. Had IR drain placed yesterday with 20 cc purulent drainage out. Currently had IR drain in place- dressing clean/dry/intact, bag with scant , ~5cc purulent, nestor appearing fluid. Febrile over last night, Tmax 101.5 at ~ 8:30pm. Objective - Vital Signs/Intake and Output Vital Signs (last 24 hours): Temp Pulse Resp BP Pulse Ox 98.9 F 112 H 20 98/59 L 98 01/24/18 02:39 01/24/18 02:46 01/24/18 02:46 01/24/18 02:39 01/24/18 02:46 - Medications Medications: Current Medications Hydromorphone HCl (Dilaudid) 0.5 mg IVP Q3H PRN PRN Reason: Pain, moderate (4-7) Last Admin: 01/24/18 08:20 Dose: 0.5 mg Dextrose/Sodium Chloride (Dextrose 5%-0.9% Ns 500 Ml) 1,000 mls @ 100 mls/hr IV .Q10H TAO Last Admin: 01/24/18 00:01 Dose: 100 mls/hr Piperacillin Sod/Tazobactam (Sod 3.375 gm/ Sodium Chloride) 100 mls @ 100 mls/ hr IVPB Q6 TAO PRN Reason: Protocol Last Admin: 01/24/18 04:00 Dose: 100 mls/hr Ondansetron HCl (Zofran Inj) 4 mg IVP Q4 PRN PRN Reason: Nausea/Vomiting - Labs Labs: 01/24/18 06:35 01/24/18 06:35 PT 13.6 Seconds (9.8-13.1) H 01/23/18 18:30 INR 1.2 (0.9-1.2) 01/23/18 18:30 APTT 28.4 Seconds (25.6-37.1) 01/23/18 18:30 - Constitutional Appears: Non-toxic, No Acute Distress - Head Exam Head Exam: ATRAUMATIC, NORMAL INSPECTION, NORMOCEPHALIC - Eye Exam Eye Exam: EOMI, Normal appearance - ENT Exam ENT Exam: Mucous Membranes Moist, Normal Exam - Neck Exam Neck Exam: Full ROM, Normal Inspection - Respiratory Exam Respiratory Exam: NORMAL BREATHING PATTERN - Cardiovascular Exam Cardiovascular Exam: REGULAR RHYTHM, +S1, +S2 - GI/Abdominal Exam GI & Abdominal Exam: Distended (mildly), Soft, Tenderness (minimal, over IR drain insertion site). absent: Firm, Guarding, Rigid, Hernia, Mass Additional comments: IR drain in place in RLQ/suprapubic area of abdomen- dressing in place- clean/ dry/intact, minimal purulent nestor output in bag Frida in place over lower abdomen incision - Extremities Exam Extremities Exam: Normal Inspection - Neurological Exam Neurological Exam: Alert, Awake, Oriented x3 - Psychiatric Exam Psychiatric exam: Normal Affect, Normal Mood - Skin Skin Exam: Dry, Intact, Normal Color, Warm Assessment and Plan - Assessment and Plan (Free Text) Assessment: 42F w/pelvic abscess s/p hysterectomy on 01/15 POD#1 s/p IR placement of pelvic drain Plan: Ok for ice chips Flush IR drain as directed IVF Continue IV Abx- Zosyn Continue pain control Anti-emetic PRN Will follow Will KARL attending Ana, PGY-2
--- NOTE | 2018-01-24 08:50 | CP.PCM.PN ---
Subjective - Date & Time of Evaluation Date of Evaluation: 01/24/18 Time of Evaluation: 08:50 Objective - Vital Signs/Intake and Output Vital Signs (last 24 hours): Temp Pulse Resp BP Pulse Ox 98.9 F 112 H 20 98/59 L 98 01/24/18 02:39 01/24/18 02:46 01/24/18 02:46 01/24/18 02:39 01/24/18 02:46 - Medications Medications: Current Medications Hydromorphone HCl (Dilaudid) 0.5 mg IVP Q3H PRN PRN Reason: Pain, moderate (4-7) Last Admin: 01/24/18 08:20 Dose: 0.5 mg Dextrose/Sodium Chloride (Dextrose 5%-0.9% Ns 500 Ml) 1,000 mls @ 100 mls/hr IV .Q10H TAO Last Admin: 01/24/18 00:01 Dose: 100 mls/hr Piperacillin Sod/Tazobactam (Sod 3.375 gm/ Sodium Chloride) 100 mls @ 100 mls/ hr IVPB Q6 TAO PRN Reason: Protocol Last Admin: 01/24/18 04:00 Dose: 100 mls/hr Ondansetron HCl (Zofran Inj) 4 mg IVP Q4 PRN PRN Reason: Nausea/Vomiting - Labs Labs: 01/24/18 06:35 01/24/18 06:35 PT 13.6 Seconds (9.8-13.1) H 01/23/18 18:30 INR 1.2 (0.9-1.2) 01/23/18 18:30 APTT 28.4 Seconds (25.6-37.1) 01/23/18 18:30
--- NOTE | 2018-01-24 09:04 | CP.PCM.PN ---
Subjective - Date & Time of Evaluation Date of Evaluation: 01/24/18 Time of Evaluation: 09:02 - Subjective Subjective: General Surgery Pt seen and examined this AM. She reports that she continues to have abdominal pain and gets mild relief with pain medications. She describes the pain as "gassy". Pt also c/o being thirsty. Pt febrile last night, t max 101.5. Labs and vitals noted. WBC increased to 19.2 from 14.8. Pt's BP on low end, as per previous chart review, pt usually runs around 110/mid 60s PE Gen: Pt laying in bed in moderate distress. Moaning. Skin: warm and dry, see abd. Cardio: (+) tachycardic, (-) murmurs Lungs: Cta bilaterally, (-) wheezing Abd: (+) mildy distended, (+)firm in bilateral lower quadrants, (+) rebound, (+ ) guarding. (+) drain in place with brown watery output ~10 ml. (-) odor. Stapled transverse surgical incision c/d/i. Extr: (-) calf tenderness bilaterally A/P Pelvic Abscess/Sepsis Continue IV antibiotics Increase IVF to 1.5x maintenance as pt has been febrile and c /o thirst. Monitor labs and drain output NPO with icechips Pain control Tachycardia Likely due to pain and infection Cardiology on consult Objective - Vital Signs/Intake and Output Vital Signs (last 24 hours): Temp Pulse Resp BP Pulse Ox 98.9 F 112 H 20 98/59 L 98 01/24/18 02:39 01/24/18 02:46 01/24/18 02:46 01/24/18 02:39 01/24/18 02:46 - Medications Medications: Current Medications Hydromorphone HCl (Dilaudid) 0.5 mg IVP Q3H PRN PRN Reason: Pain, moderate (4-7) Last Admin: 01/24/18 08:20 Dose: 0.5 mg Dextrose/Sodium Chloride (Dextrose 5%-0.9% Ns 500 Ml) 1,000 mls @ 100 mls/hr IV .Q10H TAO Last Admin: 01/24/18 00:01 Dose: 100 mls/hr Piperacillin Sod/Tazobactam (Sod 3.375 gm/ Sodium Chloride) 100 mls @ 100 mls/ hr IVPB Q6 TAO PRN Reason: Protocol Last Admin: 01/24/18 04:00 Dose: 100 mls/hr Ondansetron HCl (Zofran Inj) 4 mg IVP Q4 PRN PRN Reason: Nausea/Vomiting - Labs Labs: 01/24/18 06:35 01/24/18 06:35 PT 13.6 Seconds (9.8-13.1) H 01/23/18 18:30 INR 1.2 (0.9-1.2) 01/23/18 18:30 APTT 28.4 Seconds (25.6-37.1) 01/23/18 18:30
[2018-01-24] MEDS: Sodium Chloride 0.9% 1,000 ML IV SCH ×3 (13:07→22:00)
[2018-01-24] MEDS ORDERED: Dextrose 5%/0.9% NS 1,000 ML IV SCH (13:15)
--- NOTE | 2018-01-24 13:19 | CP.PCM.HP ---
History of Present Illness - History of Present Illness History of Present Illness: s/p KIMBERLY on 01/15/18 and post-op course not complicated D/C home on pain meds and was doing well had multple episodes of bm but 2 days ago felt constipated and did home enema with good results but next day developed some "gas" pains and started getting worse and came to ER Deniesd n/V or c/F Cat scan done showing a pelvic abcess and pt admitted for possible drainage and IV antibiotics Present on Admission - Present on Admission Any Indicators Present on Admission: Yes History of DVT/PE: No History of Uncontrolled Diabetes: No Urinary Catheter: No Decubitus Ulcer Present: No - Notes: Notes:: pelvic abcess Review of Systems - Constitutional Constitutional: As Per HPI - Breasts Additional comments: denies suppt or breast pains - Cardiovascular Additional comments: denied chest pains - Gastrointestinal Gastrointestinal: As Per HPI - Genitourinary Genitourinary: As Per HPI - Reproductive: Female Reproductive:Female: As Per HPI - Menstruation Additional comments: s/p KIMBERLY - Hematologic/Lymphatic Hematologic: As Per HPI Past Patient History - Past Medical History & Family History Past Medical History?: Yes - Past Social History Smoking Status: Never Smoked Chewing Tobacco Use: No Cigar Use: No Alcohol: None Drugs: Denies - CARDIAC Hx Hypercholesterolemia: Yes - PULMONARY Hx Respiratory Disorders: No - NEUROLOGICAL Hx Neurological Disorder: No Hx Transient Ischemic Attacks (TIA): No - HEENT Hx HEENT Problems: No - RENAL Hx Chronic Kidney Disease: No - ENDOCRINE/METABOLIC Hx Endocrine Disorders: No - HEMATOLOGICAL/ONCOLOGICAL Hx Anemia: Yes (IRON DEFICIENCY ANEMIA) - INTEGUMENTARY Hx Dermatological Problems: No - MUSCULOSKELETAL/RHEUMATOLOGICAL Hx Fractures: No - GASTROINTESTINAL Hx Gastrointestinal Disorders: Yes Hx Constipation: Yes Hx Hemorrhoids: Yes (DX. 1 YEAR AGO WITH COLONOSCOPY) Hx Nausea: No - GENITOURINARY/GYNECOLOGICAL Hx Genitourinary Disorders: Yes Other/Comment: BTL - PSYCHIATRIC Hx Substance Use: No - SURGICAL HISTORY Hx Surgeries: Yes Hx Section: Yes (X2) Hx Hysterectomy: Yes Hx Tubal Ligation: Yes Other/Comment: C/S x2 - ANESTHESIA Hx Anesthesia: Yes Hx Anesthesia Reactions: No Hx Malignant Hyperthermia: No Meds Allergies/Adverse Reactions: Allergies Allergy/AdvReac Type Severity Reaction Status Date / Time No Known Allergies Allergy Verified 01/23/18 08:54 Physical Exam - Head Exam Head Exam: ATRAUMATIC - Neck Exam Neck exam: Positive for: Full Rom - Respiratory Exam Respiratory Exam: NORMAL BREATHING PATTERN - GI/Abdominal Exam GI & Abdominal Exam: Soft, Tenderness Additional comments: incision clean and dry no sign of active bleeding or infection Frida in place - Exam External exam: NORMAL EXTERNAL EXAM Additional comments: no active vaginal bleeding - Extremities Exam Extremities exam: Positive for: full ROM Additional comments: no leg edema or calf tenderness - Neurological Exam Neurological exam: Alert, Normal Gait, Oriented x3 - Psychiatric Exam Psychiatric exam: Normal Affect, Normal Mood Results - Vital Signs Recent Vital Signs: Last Vital Signs Temp 98.9 F 01/24/18 12:39 Pulse 112 H 01/24/18 12:39 Resp 20 01/24/18 12:39 BP 106/70 01/24/18 12:39 Pulse Ox 100 01/24/18 12:39 - Labs Result Diagrams: 01/24/18 06:35 01/24/18 06:35 Labs: Laboratory Results - last 24 hr 01/23/18 01/23/18 01/24/18 16:11 18:30 06:35 WBC 19.2 H RBC 2.82 L Hgb 7.6 L Hct 23.5 L MCV 83.6 MCH 27.0 MCHC 32.3 L RDW 15.5 H Plt Count 559 H MPV 8.1 Neut % (Auto) 87.0 H Lymph % (Auto) 4.3 L [place] % (Auto) 8.5 Eos % (Auto) 0.1 Baso % (Auto) 0.1 Neut # (Auto) 16.7 H Lymph # (Auto) 0.8 L [place] # (Auto) 1.6 H Eos # (Auto) 0.0 Baso # (Auto) 0.0 PT 13.6 H INR 1.2 APTT 28.4 pO2 16 L VBG pH 7.39 VBG pCO2 41 VBG HCO3 23.3 VBG Total CO2 26.1 VBG O2 Sat (Calc) 18.0 L VBG Base Excess -0.2 L VBG Potassium 4.0 Sodium 133.0 Chloride 100.0 Glucose 150 H Lactate 2.6 H FiO2 21.0 Potassium Carbon Dioxide Anion Gap BUN Creatinine Est GFR ( Amer) Est GFR (Non-Af Amer) Random Glucose Calcium Total Bilirubin AST ALT Alkaline Phosphatase Total Protein Albumin Globulin Albumin/Globulin Ratio Venous Blood Potassium 4.0 01/24/18 06:35 WBC RBC Hgb Hct MCV MCH MCHC RDW Plt Count MPV Neut % (Auto) Lymph % (Auto) [place] % (Auto) Eos % (Auto) Baso % (Auto) Neut # (Auto) Lymph # (Auto) [place] # (Auto) Eos # (Auto) Baso # (Auto) PT INR APTT pO2 VBG pH VBG pCO2 VBG HCO3 VBG Total CO2 VBG O2 Sat (Calc) VBG Base Excess VBG Potassium Sodium 141 Chloride 109 H Glucose Lactate FiO2 Potassium 4.1 Carbon Dioxide 21 L Anion Gap 15 BUN 5 L Creatinine 0.7 Est GFR ( Amer) > 60 Est GFR (Non-Af Amer) > 60 Random Glucose 112 H Calcium 8.6 Total Bilirubin 1.1 AST 140 H ALT 277 H D Alkaline Phosphatase 253 H Total Protein 6.7 Albumin 3.4 L Globulin 3.3 Albumin/Globulin Ratio 1.0 Venous Blood Potassium Assessment & Plan (1) Abdominal pain Status: Acute (2) Pelvic abscess in female Status: Acute - Assessment and Plan (Free Text) Plan: IV antibiotics and drainage of abcess Surgical and cardiology consults requested
--- NOTE | 2018-01-24 16:08 | CP.PCM.CON ---
History of Present Illness - History of Present Illness History of Present Illness: THE PATIENT IS A 42 YEAR OLD FEMALE WHO HAD A RECENT HYSTERECTOMY FOR FIBROIDS WITH HEAVY BLEEDING. SHE DID WELL ON THAT ADMISSION. 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 BUT YESTERDAY SHE HAD MUCH PAIN AND WENT TO THE ER AND WAS FOUND TO HAVE A PELVIC ABSCESS AND SHE WAS ADMITTED. SHE HAD DRAINAGE OF THE ABSCESS BY IR AND IS NOW ON 4N. CARDIOLOGY WAS CALLED DUE TO TACHYCARDIA. SHE DENIES ANY CARDIAC HISTORY, CHEST PAIN, PALPITATIONS OR SOB. Past Patient History - Past Medical History & Family History Past Medical History?: Yes - Past Social History Smoking Status: Never Smoked Chewing Tobacco Use: No Cigar Use: No Alcohol: None Drugs: Denies - CARDIAC Hx Hypercholesterolemia: Yes - PULMONARY Hx Respiratory Disorders: No - NEUROLOGICAL Hx Neurological Disorder: No Hx Transient Ischemic Attacks (TIA): No - HEENT Hx HEENT Problems: No - RENAL Hx Chronic Kidney Disease: No - ENDOCRINE/METABOLIC Hx Endocrine Disorders: No - HEMATOLOGICAL/ONCOLOGICAL Hx Anemia: Yes (IRON DEFICIENCY ANEMIA) - INTEGUMENTARY Hx Dermatological Problems: No - MUSCULOSKELETAL/RHEUMATOLOGICAL Hx Fractures: No - GASTROINTESTINAL Hx Gastrointestinal Disorders: Yes Hx Constipation: Yes Hx Hemorrhoids: Yes (DX. 1 YEAR AGO WITH COLONOSCOPY) Hx Nausea: No - GENITOURINARY/GYNECOLOGICAL Hx Genitourinary Disorders: Yes Other/Comment: BTL - PSYCHIATRIC Hx Substance Use: No - SURGICAL HISTORY Hx Surgeries: Yes Hx Section: Yes (X2) Hx Hysterectomy: Yes Hx Tubal Ligation: Yes Other/Comment: C/S x2 - ANESTHESIA Hx Anesthesia: Yes Hx Anesthesia Reactions: No Hx Malignant Hyperthermia: No Meds Allergies/Adverse Reactions: Allergies Allergy/AdvReac Type Severity Reaction Status Date / Time No Known Allergies Allergy Verified 01/23/18 08:54 - Medications Medications: Current Medications Hydromorphone HCl (Dilaudid) 0.5 mg IVP Q3H PRN PRN Reason: Pain, moderate (4-7) Last Admin: 01/24/18 15:36 Dose: 0.5 mg Piperacillin Sod/Tazobactam (Sod 3.375 gm/ Sodium Chloride) 100 mls @ 100 mls/ hr IVPB Q6 TAO PRN Reason: Protocol Last Admin: 01/24/18 15:37 Dose: 100 mls/hr Sodium Chloride (Sodium Chloride 0.9%) 1,000 mls @ 150 mls/hr IV .Q6H40M TAO Stop: 01/25/18 09:18 Last Admin: 01/24/18 13:07 Dose: 150 mls/hr Ondansetron HCl (Zofran Inj) 4 mg IVP Q4 PRN PRN Reason: Nausea/Vomiting Physical Exam - Respiratory Exam Respiratory Exam: Clear to Auscultation Bilateral - Cardiovascular Exam Cardiovascular Exam: Tachycardia, +S1, +S2 - Extremities Exam Extremities exam: Positive for: normal inspection - Additional Findings Additional findings: T 101.5 LAST NIGHT, NORMAL NOW BP 106/[address], R [address], R 115 H/H 04/1501/23/18 H/H 02/0801/24/18 IR NOTE REVIEWED Results - Vital Signs Recent Vital Signs: Last Vital Signs Temp 98.9 F 01/24/18 13:00 Pulse 112 H 01/24/18 13:00 Resp 20 01/24/18 13:00 BP 106/70 01/24/18 13:00 Pulse Ox 98 01/24/18 15:03 - Labs Result Diagrams: 01/24/18 06:35 01/24/18 06:35 Labs: Laboratory Results - last 24 hr 01/23/18 01/23/18 01/24/18 16:11 18:30 06:35 WBC 19.2 H RBC 2.82 L Hgb 7.6 L Hct 23.5 L MCV 83.6 MCH 27.0 MCHC 32.3 L RDW 15.5 H Plt Count 559 H MPV 8.1 Neut % (Auto) 87.0 H Lymph % (Auto) 4.3 L [place] % (Auto) 8.5 Eos % (Auto) 0.1 Baso % (Auto) 0.1 Neut # (Auto) 16.7 H Lymph # (Auto) 0.8 L [place] # (Auto) 1.6 H Eos # (Auto) 0.0 Baso # (Auto) 0.0 PT 13.6 H INR 1.2 APTT 28.4 pO2 16 L VBG pH 7.39 VBG pCO2 41 VBG HCO3 23.3 VBG Total CO2 26.1 VBG O2 Sat (Calc) 18.0 L VBG Base Excess -0.2 L VBG Potassium 4.0 Sodium 133.0 Chloride 100.0 Glucose 150 H Lactate 2.6 H FiO2 21.0 Potassium Carbon Dioxide Anion Gap BUN Creatinine Est GFR ( Amer) Est GFR (Non-Af Amer) Random Glucose Calcium Total Bilirubin AST ALT Alkaline Phosphatase Total Protein Albumin Globulin Albumin/Globulin Ratio Venous Blood Potassium 4.0 01/24/18 06:35 WBC RBC Hgb Hct MCV MCH MCHC RDW Plt Count MPV Neut % (Auto) Lymph % (Auto) [place] % (Auto) Eos % (Auto) Baso % (Auto) Neut # (Auto) Lymph # (Auto) [place] # (Auto) Eos # (Auto) Baso # (Auto) PT INR APTT pO2 VBG pH VBG pCO2 VBG HCO3 VBG Total CO2 VBG O2 Sat (Calc) VBG Base Excess VBG Potassium Sodium 141 Chloride 109 H Glucose Lactate FiO2 Potassium 4.1 Carbon Dioxide 21 L Anion Gap 15 BUN 5 L Creatinine 0.7 Est GFR ( Amer) > 60 Est GFR (Non-Af Amer) > 60 Random Glucose 112 H Calcium 8.6 Total Bilirubin 1.1 AST 140 H ALT 277 H D Alkaline Phosphatase 253 H Total Protein 6.7 Albumin 3.4 L Globulin 3.3 Albumin/Globulin Ratio 1.0 Venous Blood Potassium Assessment & Plan - Assessment and Plan (Free Text) Assessment: SINUS TACHYCARDIA DUE TO SEPSIS WITH A FEVER, PAIN AND ANEMIA S/P HYSTERECTOMY WITH A PELVIC ABSCESS HYPERLIPIDEMIA HISTORY Plan: CONTINUE IV ANTIBIOTICS, IV FLUIDS AND PELVIC ABSCESS DRAINAGE CBC IN AM DISCUSSED WITH DR CLIFFORD AND WE MAY NEED TO TRANSFUSE THE PATIENT IF HER H/H FALLS FURTHER
--- NOTE | 2018-01-24 17:39 | CARD ---
APPROVED REPORT EKG Measurement Heart [id number] <Conclusion> Sinus tachycardia Nonspecific T wave abnormality Abnormal ECG
[2018-01-25] MEDS: HYDROmorphone 0.5 mg/0.5 ml ISec IVP PRN ×3 (02:55→20:18)
[2018-01-25] MEDS: Piperacillin/Tazobact 3.375 GM in Sodium Chloride 0.9% 100 ML IVPB SCH ×4 (03:16→21:25)
[2018-01-25] MEDS: Sodium Chloride 0.9% 1,000 ML IV SCH ×2 (03:17→05:30)
[2018-01-25 05:28] LABS: BASO % 0.3 % (0.0-2.0); EOS # 0.1 K/uL (0.0-0.7); EOS % 0.4 % (0.0-4.0); HEMOGLOBIN 7.1 g/dL (12.0-16.0); LYMPH % 5.2 % (20.0-40.0); MEAN CELL VOLUME 84.8 fl (81.0-99.0); MEAN CORPUSCULAR HEMOGLOBIN 26.3 pg (27.0-31.0); MEAN PLATELET VOLUME 7.6 fl (7.2-11.7); MONO # 1.5 K/uL (0.0-0.8); MONO % 8.1 % (0.0-10.0); NEUT # 16.4 K/uL (1.8-7.0); RBC 2.7 Mil/uL (3.80-5.20); RED CELL DISTRIBUTION WIDTH 15.3 % (11.5-14.5)
[2018-01-25 06:01] LABS: ALBUMIN 3.1 g/dL (3.5-5.0); ALT/SGPT 169 U/L (9-52); AST/SGOT 55 U/L (14-36); BLOOD UREA NITROGEN 4 mg/dl (7-17); CALCIUM 8.5 mg/dL (8.4-10.2); GFR AFRICAN-AMERICAN > 60; GFR NON-AFRICAN AMERICAN > 60
--- NOTE | 2018-01-25 07:36 | CP.PCM.PN ---
Addendum entered and electronically signed by Tierra Sutton DO 01/25/18 10:24: WBC remains elevated at 19. Currently on Zosyn 3.375 q6h. -Recommend ID Consult for further Abx reccs. Original Note: <Tara Zheng - Last Filed: 01/25/18 07:33> Subjective - Date & Time of Evaluation Date of Evaluation: 01/25/18 Time of Evaluation: 07:33 - Subjective Subjective: General Surgery Dr. Yates Pt S&E @bedside. NAEO. Pt reports improved pain. has been OOB @bedside. denies F /C, N/V, D/C. tolerating ice chips. Objective - Vital Signs/Intake and Output Vital Signs (last 24 hours): Temp Pulse Resp BP Pulse Ox 98.4 F 122 H 18 100/67 98 01/25/18 04:54 01/25/18 04:54 01/25/18 04:54 01/25/18 04:54 01/25/18 04:54 Intake and Output: 01/25/18 01/25/18 06:59 18:59 Intake Total 1000 Output Total 21 Balance 979 - Medications Medications: Current Medications Hydromorphone HCl (Dilaudid) 0.5 mg IVP Q3H PRN PRN Reason: Pain, moderate (4-7) Last Admin: 01/25/18 02:55 Dose: 0.5 mg Piperacillin Sod/Tazobactam (Sod 3.375 gm/ Sodium Chloride) 100 mls @ 100 mls/ hr IVPB Q6 TAO PRN Reason: Protocol Last Admin: 01/25/18 03:16 Dose: 100 mls/hr Potassium Chloride/Dextrose/Sod Cl (Potassium Chl 20 Meq In D5-1/2ns) 1,000 mls @ 100 mls/hr IV .Q10H TAO Stop: 01/26/18 07:29 Ondansetron HCl (Zofran Inj) 4 mg IVP Q4 PRN PRN Reason: Nausea/Vomiting Potassium Chloride (K-Dur 20 Meq Er Tab) 20 meq PO Q2 TAO Stop: 01/25/18 10:01 - Labs Labs: 01/25/18 04:20 01/25/18 04:20 PT 13.6 Seconds (9.8-13.1) H 01/23/18 18:30 INR 1.2 (0.9-1.2) 01/23/18 18:30 APTT 28.4 Seconds (25.6-37.1) 01/23/18 18:30 - Constitutional Appears: Non-toxic, No Acute Distress - Head Exam Head Exam: NORMAL INSPECTION - Eye Exam Eye Exam: Normal appearance - ENT Exam ENT Exam: Mucous Membranes Moist - Respiratory Exam Respiratory Exam: NORMAL BREATHING PATTERN. absent: Respiratory Distress - Cardiovascular Exam Cardiovascular Exam: Tachycardia, REGULAR RHYTHM - GI/Abdominal Exam GI & Abdominal Exam: Soft, Tenderness (minimal TTP suprapubic) Additional comments: IR drain in place. skant drainage present - Extremities Exam Extremities Exam: Normal Inspection - Neurological Exam Neurological Exam: Alert, Awake, Oriented x3 - Psychiatric Exam Psychiatric exam: Normal Affect - Skin Skin Exam: Dry, Intact, Normal Color, Warm Assessment and Plan - Assessment and Plan (Free Text) Assessment: 42 y/o F w/ s/p IR drainage of pelvic abscess s/p hysterectomy on 01/15 w/ continued leukocytosis and tachycardia - pain management - adjust abx - f/u drain Cx - BID drain flushes - monitor drain output - monitor vitals - encourage OOB to chair/Amb/IS use Pt discussed w/ Dr. Milan Zheng DO PGY3 <Werner Yates - Last Filed: 01/25/18 12:08> Subjective - Date & Time of Evaluation Time of Evaluation: 12:00 - Subjective Subjective: Patient was seen and examined at the bedside. Agree with resident's note above. Objective - Vital Signs/Intake and Output Vital Signs (last 24 hours): Temp Pulse Resp BP Pulse Ox 97.8 F 114 H 18 107/71 99 01/25/18 08:00 01/25/18 08:00 01/25/18 08:00 01/25/18 08:00 01/25/18 08:00 Intake and Output: 01/25/18 01/25/18 06:59 18:59 Intake Total 1000 Output Total 21 Balance 979 - Medications Medications: Current Medications Hydromorphone HCl (Dilaudid) 0.5 mg IVP Q3H PRN PRN Reason: Pain, moderate (4-7) Last Admin: 01/25/18 10:51 Dose: 0.5 mg Piperacillin Sod/Tazobactam (Sod 3.375 gm/ Sodium Chloride) 100 mls @ 100 mls/ hr IVPB Q6 TAO PRN Reason: Protocol Last Admin: 01/25/18 09:46 Dose: 100 mls/hr Potassium Chloride/Dextrose/Sod Cl (Potassium Chl 20 Meq In D5-1/2ns) 1,000 mls @ 100 mls/hr IV .Q10H TAO Stop: 01/26/18 07:29 Last Admin: 01/25/18 09:51 Dose: 100 mls/hr Ondansetron HCl (Zofran Inj) 4 mg IVP Q4 PRN PRN Reason: Nausea/Vomiting - Labs Labs: 01/25/18 04:20 01/25/18 04:20 PT 13.6 Seconds (9.8-13.1) H 01/23/18 18:30 INR 1.2 (0.9-1.2) 01/23/18 18:30 APTT 28.4 Seconds (25.6-37.1) 01/23/18 18:30 - GI/Abdominal Exam Additional comments: soft, tender in the lower abdomen, mildly distended, no guarding, IR drain in place Assessment and Plan - Assessment and Plan (Free Text) Plan: - Start clear liquid diet - pain control - IV fluids - Continue antibiotics - Recommend ID consult - Repeat labs in am - Will follow
[2018-01-25] MEDS: Potassium Chloride 20 mEq ER Tab PO SCH ×2 (09:51→11:01)
[2018-01-25] MEDS: Potassium Ch 20mEq in D5-1/2NS 1,000 ML IV SCH (09:51)
--- NOTE | 2018-01-25 10:49 | CP.PCM.PN ---
Subjective - Date & Time of Evaluation Date of Evaluation: 01/25/18 Time of Evaluation: 10:40 - Subjective Subjective: NO CHEST PAIN OR SOB FEELS A LITTLE BETTER TODAY Objective - Vital Signs/Intake and Output Vital Signs (last 24 hours): Temp Pulse Resp BP Pulse Ox 97.8 F 114 H 18 107/71 99 01/25/18 08:00 01/25/18 08:00 01/25/18 08:00 01/25/18 08:00 01/25/18 08:00 Intake and Output: 01/25/18 01/25/18 06:59 18:59 Intake Total 1000 Output Total 21 Balance 979 - Medications Medications: Current Medications Hydromorphone HCl (Dilaudid) 0.5 mg IVP Q3H PRN PRN Reason: Pain, moderate (4-7) Last Admin: 01/25/18 02:55 Dose: 0.5 mg Piperacillin Sod/Tazobactam (Sod 3.375 gm/ Sodium Chloride) 100 mls @ 100 mls/ hr IVPB Q6 TAO PRN Reason: Protocol Last Admin: 01/25/18 09:46 Dose: 100 mls/hr Potassium Chloride/Dextrose/Sod Cl (Potassium Chl 20 Meq In D5-1/2ns) 1,000 mls @ 100 mls/hr IV .Q10H TAO Stop: 01/26/18 07:29 Last Admin: 01/25/18 09:51 Dose: 100 mls/hr Ondansetron HCl (Zofran Inj) 4 mg IVP Q4 PRN PRN Reason: Nausea/Vomiting - Labs Labs: 01/25/18 04:20 01/25/18 04:20 PT 13.6 Seconds (9.8-13.1) H 01/23/18 18:30 INR 1.2 (0.9-1.2) 01/23/18 18:30 APTT 28.4 Seconds (25.6-37.1) 01/23/18 18:30 - Respiratory Exam Respiratory Exam: Clear to Ausculation Bilateral - Cardiovascular Exam Cardiovascular Exam: Tachycardia, +S1, +S2 - Extremities Exam Extremities Exam: Normal Inspection - Additional Findings Additional findings: BP 107/[address], R 110 H/H 7.1/22.9 Assessment and Plan - Assessment and Plan (Free Text) Assessment: PELVIC ABSCESS WITH IR DRAINAGE RECENT HYSTERECTOMY Plan: CONTINUE IV ANTIBIOTICS AND IV FLUIDS
--- NOTE | 2018-01-25 18:31 | CP.PCM.PN ---
Subjective - Date & Time of Evaluation Date of Evaluation: 01/25/18 Time of Evaluation: 18:26 - Subjective Subjective: Still with abdominal pain but less than yesterday Denies C/F, had good BM today No vomiting or nausea Objective - Vital Signs/Intake and Output Vital Signs (last 24 hours): Temp Pulse Resp BP Pulse Ox 99.6 F 124 H 20 100/63 100 01/25/18 17:00 01/25/18 17:00 01/25/18 17:00 01/25/18 17:00 01/25/18 17:00 Intake and Output: 01/25/18 01/25/18 06:59 18:59 Intake Total 1000 Output Total 21 Balance 979 - Medications Medications: Current Medications Hydromorphone HCl (Dilaudid) 0.5 mg IVP Q3H PRN PRN Reason: Pain, moderate (4-7) Last Admin: 01/25/18 10:51 Dose: 0.5 mg Piperacillin Sod/Tazobactam (Sod 3.375 gm/ Sodium Chloride) 100 mls @ 100 mls/ hr IVPB Q6 TAO PRN Reason: Protocol Last Admin: 01/25/18 16:18 Dose: 100 mls/hr Potassium Chloride/Dextrose/Sod Cl (Potassium Chl 20 Meq In D5-1/2ns) 1,000 mls @ 100 mls/hr IV .Q10H TAO Stop: 01/26/18 07:29 Last Admin: 01/25/18 09:51 Dose: 100 mls/hr Ondansetron HCl (Zofran Inj) 4 mg IVP Q4 PRN PRN Reason: Nausea/Vomiting - Labs Labs: 01/25/18 04:20 01/25/18 04:20 PT 13.6 Seconds (9.8-13.1) H 01/23/18 18:30 INR 1.2 (0.9-1.2) 01/23/18 18:30 APTT 28.4 Seconds (25.6-37.1) 01/23/18 18:30 - Constitutional Appears: No Acute Distress - Head Exam Head Exam: ATRAUMATIC - Neck Exam Neck Exam: Full ROM - Respiratory Exam Respiratory Exam: NORMAL BREATHING PATTERN - Cardiovascular Exam Cardiovascular Exam: REGULAR RHYTHM - GI/Abdominal Exam Additional comments: soft not distended but still with generalized tenderness and some rebound - Exam External exam: NORMAL EXTERNAL EXAM - Extremities Exam Extremities Exam: Full ROM Additional comments: no calf tenderness - Back Exam Back Exam: Full ROM - Neurological Exam Neurological Exam: Alert, Awake, Oriented x3 Assessment and Plan (2) Pelvic abscess in female Status: Acute - Assessment and Plan (Free Text) Assessment: less drainage today Plan: Cardiology and surgical notes seen and appreciated blood work to be repeated in am Continue IV antibiotics and will order ID consult Pending cultures results
[2018-01-26] MEDS: HYDROmorphone 0.5 mg/0.5 ml ISec IVP PRN ×4 (00:41→20:34)
[2018-01-26] MEDS: Potassium Ch 20mEq in D5-1/2NS 1,000 ML IV SCH ×2 (00:41→06:08)
[2018-01-26 05:36] LABS: BASO % 0.1 % (0.0-2.0); EOS # 0.2 K/uL (0.0-0.7); EOS % 1.5 % (0.0-4.0); LYMPH # 1.4 K/uL (1.0-4.3); LYMPH % 8.9 % (20.0-40.0); MEAN CELL VOLUME 83.7 fl (81.0-99.0); MEAN CORPUSCULAR HGB CONC 32.2 g/dL (33.0-37.0); MEAN PLATELET VOLUME 7.3 fl (7.2-11.7); MONO # 1.6 K/uL (0.0-0.8); MONO % 9.9 % (0.0-10.0); NEUT # 12.5 K/uL (1.8-7.0); NEUT % 79.6 % (50.0-75.0); RBC 2.43 Mil/uL (3.80-5.20); RED CELL DISTRIBUTION WIDTH 16.4 % (11.5-14.5); WHITE BLOOD COUNT 15.8 K/uL (4.8-10.8)
[2018-01-26 05:47] LABS: HEMOGLOBIN 6.5 g/dL (12.0-16.0)
[2018-01-26 05:54] LABS: ALB/GLOB RATIO 0.9 (1.0-2.1); ALBUMIN 3.1 g/dL (3.5-5.0); ALT/SGPT 143 U/L (9-52); AST/SGOT 47 U/L (14-36); BLOOD UREA NITROGEN 2 mg/dl (7-17); CALCIUM 8.9 mg/dL (8.4-10.2); GFR AFRICAN-AMERICAN > 60; GFR NON-AFRICAN AMERICAN > 60
[2018-01-26] MEDS: Piperacillin/Tazobact 3.375 GM in Sodium Chloride 0.9% 100 ML IVPB SCH ×4 (06:18→21:55)
--- NOTE | 2018-01-26 07:58 | CP.PCM.PN ---
<NormTara - Last Filed: 01/26/18 07:58> Subjective - Date & Time of Evaluation Date of Evaluation: 01/26/18 Time of Evaluation: 07:56 - Subjective Subjective: General Surgery Dr. Yates Pt S&E @bedside. NAEO. Pt reports improved pain. denies F/C, N/V, abd pain. tolerating CLD. reports OOB/Amb yesterday. IR drain 15cc x24hrs Objective - Vital Signs/Intake and Output Vital Signs (last 24 hours): Temp Pulse Resp BP Pulse Ox 97.9 F 108 H 18 107/73 99 01/26/18 04:50 01/26/18 04:50 01/26/18 04:50 01/26/18 04:50 01/26/18 04:50 Intake and Output: 01/26/18 01/26/18 06:59 18:59 Intake Total 1200 Output Total 15 Balance 1185 - Medications Medications: Current Medications Hydromorphone HCl (Dilaudid) 0.5 mg IVP Q3H PRN PRN Reason: Pain, moderate (4-7) Last Admin: 01/26/18 06:09 Dose: 0.5 mg Piperacillin Sod/Tazobactam (Sod 3.375 gm/ Sodium Chloride) 100 mls @ 100 mls/ hr IVPB Q6 TOA PRN Reason: Protocol Last Admin: 01/26/18 06:18 Dose: 100 mls/hr Ondansetron HCl (Zofran Inj) 4 mg IVP Q4 PRN PRN Reason: Nausea/Vomiting - Labs Labs: 01/26/18 05:05 01/26/18 05:05 PT 13.6 Seconds (9.8-13.1) H 01/23/18 18:30 INR 1.2 (0.9-1.2) 01/23/18 18:30 APTT 28.4 Seconds (25.6-37.1) 01/23/18 18:30 - Constitutional Appears: Non-toxic, No Acute Distress - Head Exam Head Exam: NORMAL INSPECTION - Eye Exam Eye Exam: Normal appearance - ENT Exam ENT Exam: Mucous Membranes Moist - Respiratory Exam Respiratory Exam: NORMAL BREATHING PATTERN. absent: Accessory Muscle Use, Respiratory Distress - Cardiovascular Exam Cardiovascular Exam: REGULAR RHYTHM. absent: Bradycardia, Tachycardia - GI/Abdominal Exam GI & Abdominal Exam: Soft. absent: Distended, Guarding, Tenderness, Rebound Additional comments: cynthia intact, skin well approximated IR drain in place w/ skant drainage present. - Extremities Exam Extremities Exam: Normal Inspection - Neurological Exam Neurological Exam: Alert, Awake, Oriented x3 - Psychiatric Exam Psychiatric exam: Normal Affect, Normal Mood - Skin Skin Exam: Dry, Intact, Normal Color, Warm Assessment and Plan - Assessment and Plan (Free Text) Assessment: 42 y/o F w/ s/p IR drainage of pelvic abscess s/p hysterectomy on 01/15 w/ improving leukocytosis and tachycardia - cont pain management - ADAT - cont IV Abx - f/u drain Cx --> gram+ cocci - BID drain flushes - monitor drain output - monitor vitals - encourage OOB to chair/Amb/IS use Pt discussed w/ Dr. Milan Zheng DO PGY3 <Werner Yates - Last Filed: 01/26/18 10:17> Subjective - Date & Time of Evaluation Time of Evaluation: 10:00 - Subjective Subjective: Patient was seen and examined at the bedside. Agree with resident's note above. Objective - Vital Signs/Intake and Output Vital Signs (last 24 hours): Temp Pulse Resp BP Pulse Ox 97.8 F 103 H 20 100/64 98 01/26/18 08:00 01/26/18 08:00 01/26/18 08:00 01/26/18 08:00 01/26/18 08:00 Intake and Output: 01/26/18 01/26/18 06:59 18:59 Intake Total 1200 Output Total 15 Balance 1185 - Medications Medications: Current Medications Hydromorphone HCl (Dilaudid) 0.5 mg IVP Q3H PRN PRN Reason: Pain, moderate (4-7) Last Admin: 01/26/18 06:09 Dose: 0.5 mg Piperacillin Sod/Tazobactam (Sod 3.375 gm/ Sodium Chloride) 100 mls @ 100 mls/ hr IVPB Q6 TAO PRN Reason: Protocol Last Admin: 01/26/18 10:03 Dose: 100 mls/hr Ondansetron HCl (Zofran Inj) 4 mg IVP Q4 PRN PRN Reason: Nausea/Vomiting - Labs Labs: 01/26/18 09:00 01/26/18 05:05 PT 13.6 Seconds (9.8-13.1) H 01/23/18 18:30 INR 1.2 (0.9-1.2) 01/23/18 18:30 APTT 28.4 Seconds (25.6-37.1) 01/23/18 18:30 - GI/Abdominal Exam Additional comments: soft, much improved tenderness, mildly distended, BS+, no rebound, no guarding, incision clean, no erythema, no drainage, cynthia in place Assessment and Plan - Assessment and Plan (Free Text) Plan: - Continue antibiotics - Start regular diet - Pain control - Repeat labs in am - Will follow
--- NOTE | 2018-01-26 08:11 | PQF ---
PROVIDER RESPONSE TEXT: -- Condition occurred in the post operative period, cause clinically unable to be determined REVIEWER QUERY TEXT: Postoperative Relationship Clarification Admitted with pelvic abscess in a female s/p hysterectomy. Please further clarify the etiology of the pelvic abscess. Please clarify the term ?post operative? related to the documented condition in the Medical Record Such as: -- Condition is a complication of surgery -- Condition occurred in the post operative period, cause documented (please specify cause) -- Condition occurred in the post operative period, cause clinically unable to be determined -- Condition is incidental to surgery -- Other, please specify Documentation indicators that raised basis for question: Presents to ED complaining of abdominal pain s/p abdominal hysterectomy 9 days ago (). Pt rep orts she was discharged uneventfully and started on ibuprofen and percocet for pain. 2 days ago felt constipated and did home enema with good results but next day developed some "gas" pains and started getting worse and came to ER . CT ABD: 5.2 x 4.2 x 7.0 cm lobulated postoperative pelvic abscess. 9.2 x 2.0 cm anterior abdominal wa ll soft tissue seroma. Small volume fluid in the pelvis with mild enhancement compatible indicating p eritonitis. TEMP: 99.2, 98.9, 101.5, 98.9, 98 HR: 110, 101, 98, 98, 100, 80, 90, 112, 113, 127 BP 98/50, 97/64, 97/65, 97/65, 102/65, 105/70, 106/75, 98/59 Treated with IVAB. Query created by: Isabelle García on 01/25/2018 1:49 PM PROVIDER RESPONSE TEXT: - Confirmed and current REVIEWER QUERY TEXT: Conflicting Documentation Clarification Documentation of Sepsis for the same clinical presentation appears in the record. Please clarify the diagnosis/diagnoses. Please also document if the condition is: -- Confirmed and current -- Confirmed, treated and resolved -- Ruled out -- Other, please specify The patient's Clinical Indicators include: Presents to ED complaining of abdominal pain s/p abdominal hysterectomy 9 days ago (). Pt rep orts she was discharged uneventfully and started on ibuprofen and percocet for pain. 2 days ago felt constipated and did home enema with good results but next day developed some "gas" pains and started getting worse and came to ER . ER: Pelvic abscess in female, Sepsis Cardiology: SINUS TACHYCARDIA DUE TO SEPSIS WITH A FEVER, PAIN AND ANEMIA Surgery:Pelvic Abscess/ Sepsis, Tachycardia . Pt's BP on low end, as per previous chart review, pt us ually runs around 110/mid 60s CT ABD: 5.2 x 4.2 x 7.0 cm lobulated postoperative pelvic abscess. 9.2 x 2.0 cm anterior abdominal wa ll soft tissue seroma. Small volume fluid in the pelvis with mild enhancement compatible indicating p eritonitis. TEMP: 99.2, 98.9, 101.5, 98.9, 98 HR: 110, 101, 98, 98, 100, 80, 90, 112, 113, 127 BP 98/50, 97/64, 97/65, 97/65, 102/65, 105/70, 106/75, 98/59 WBC 14-> 19 L shift 7% BANDS, Lactate 2.6, LFT elevated Treated with IVAB. Query created by: Isabelle García on 01/25/2018 1:56 PM PROVIDER RESPONSE TEXT: Peritonitis present on admission REVIEWER QUERY TEXT: Clarification of Clinical Diagnostic Findings Please clarify documentation or clinical relevance for the clinical / diagnostic findings of peritoni tis on the CT Scan or whether that is significant, is insignificant or unable to be further specified . The patient's Clinical Indicators include: Admitted with pelvic abscess in a female s/p hysterectomy. CT ABD: 5.2 x 4.2 x 7.0 cm lobulated postoperative pelvic abscess. 9.2 x 2.0 cm anterior abdominal wa ll soft tissue seroma. Small volume fluid in the pelvis with mild enhancement compatible indicating hialrio tonitis. Surgical consult: + mildly distended, + firm in bilateral lower quadrants, + rebound, + guarding, + drain in place Query created by: Isabelle García on 01/25/2018 2:02 PM Electronically signed by: Bradley Ware MD 01/26/2018 8:08 AM
[2018-01-26 09:10] LABS: HEMOGLOBIN 7.9 g/dL (12.0-16.0)
--- NOTE | 2018-01-26 10:24 | CP.PCM.PN ---
Subjective - Date & Time of Evaluation Date of Evaluation: 01/26/18 Time of Evaluation: 07:15 - Subjective Subjective: NO CHEST PAIN OR SOB FEELS A LITTLE BETTER TODAY Objective - Vital Signs/Intake and Output Vital Signs (last 24 hours): Temp Pulse Resp BP Pulse Ox 97.8 F 103 H 20 100/64 98 01/26/18 08:00 01/26/18 08:00 01/26/18 08:00 01/26/18 08:00 01/26/18 08:00 Intake and Output: 01/26/18 01/26/18 06:59 18:59 Intake Total 1200 Output Total 15 Balance 1185 - Medications Medications: Current Medications Hydromorphone HCl (Dilaudid) 0.5 mg IVP Q3H PRN PRN Reason: Pain, moderate (4-7) Last Admin: 01/26/18 06:09 Dose: 0.5 mg Piperacillin Sod/Tazobactam (Sod 3.375 gm/ Sodium Chloride) 100 mls @ 100 mls/ hr IVPB Q6 TAO PRN Reason: Protocol Last Admin: 01/26/18 10:03 Dose: 100 mls/hr Ondansetron HCl (Zofran Inj) 4 mg IVP Q4 PRN PRN Reason: Nausea/Vomiting - Labs Labs: 01/26/18 09:00 01/26/18 05:05 PT 13.6 Seconds (9.8-13.1) H 01/23/18 18:30 INR 1.2 (0.9-1.2) 01/23/18 18:30 APTT 28.4 Seconds (25.6-37.1) 01/23/18 18:30 - Respiratory Exam Respiratory Exam: Clear to Ausculation Bilateral - Cardiovascular Exam Cardiovascular Exam: Bradycardia, Tachycardia, +S1, +S2 - Extremities Exam Extremities Exam: Normal Inspection - Additional Findings 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
[2018-01-26] MEDS ORDERED: Meropenem 1 GM in Sodium Chloride 0.9% 100 ML IVPB ONE (17:11)
[2018-01-26] MEDS: Clindamycin 600mg/50ml D5W 600 MG/50 ML VIAL IVPB SCH (18:39)
--- NOTE | 2018-01-26 19:40 | CP.PCM.PN ---
Subjective - Date & Time of Evaluation Date of Evaluation: 01/26/18 Time of Evaluation: 19:39 - Subjective Subjective: Less pains today, no vomiting tolerating diet well Voiding well Denies c/F Objective - Vital Signs/Intake and Output Vital Signs (last 24 hours): Temp Pulse Resp BP Pulse Ox 98.4 F 100 H 20 106/71 100 01/26/18 15:47 01/26/18 15:47 01/26/18 15:47 01/26/18 15:47 01/26/18 15:47 - Medications Medications: Current Medications Hydromorphone HCl (Dilaudid) 0.5 mg IVP Q3H PRN PRN Reason: Pain, moderate (4-7) Last Admin: 01/26/18 12:24 Dose: 0.5 mg Piperacillin Sod/Tazobactam (Sod 3.375 gm/ Sodium Chloride) 100 mls @ 100 mls/ hr IVPB Q6 TAO PRN Reason: Protocol Last Admin: 01/26/18 16:06 Dose: 100 mls/hr Clindamycin Phosphate (Cleocin) 600 mg in 50 mls @ 50 mls/hr IVPB Q8 TAO PRN Reason: Protocol Last Admin: 01/26/18 18:39 Dose: 50 mls/hr Meropenem 1 gm/ Sodium (Chloride) 100 mls @ 100 mls/hr IVPB Q12 TAO PRN Reason: Protocol Ondansetron HCl (Zofran Inj) 4 mg IVP Q4 PRN PRN Reason: Nausea/Vomiting - Labs Labs: 01/26/18 09:00 01/26/18 05:05 PT 13.6 Seconds (9.8-13.1) H 01/23/18 18:30 INR 1.2 (0.9-1.2) 01/23/18 18:30 APTT 28.4 Seconds (25.6-37.1) 01/23/18 18:30 - Head Exam Head Exam: ATRAUMATIC - Neck Exam Neck Exam: Full ROM, Normal Inspection - Respiratory Exam Respiratory Exam: NORMAL BREATHING PATTERN - GI/Abdominal Exam Additional comments: soft not distended depressible and less tender Drain in place draining greenish fluid less than yesterday Inicision clean and dry - Extremities Exam Extremities Exam: Full ROM Additional comments: no calf tenderness or edema - Neurological Exam Neurological Exam: Alert, Awake, Oriented x3 Assessment and Plan (2) Pelvic abscess in female Status: Acute - Assessment and Plan (Free Text) Assessment: improving Plan: CBC repeated and H/H not dropping and dec WBC count Pending ID evaluation Diet as tolerated Continue iv antibiotics and present management Surgical and cardiology notes seen and appreciated
[2018-01-26] MEDS: Meropenem 1 GM in Sodium Chloride 0.9% 100 ML IVPB SCH (20:38)
[2018-01-27] MEDS: Clindamycin 600mg/50ml D5W 600 MG/50 ML VIAL IVPB SCH ×3 (00:45→16:25)
[2018-01-27] MEDS: Piperacillin/Tazobact 3.375 GM in Sodium Chloride 0.9% 100 ML IVPB SCH ×4 (03:36→21:04)
[2018-01-27] MEDS ORDERED: HYDROmorphone 0.5 mg/0.5 ml ISec IVP ONE (04:20)
--- NOTE | 2018-01-27 04:29 | CON ---
DATE: 01/26/2018 INFECTIOUS DISEASE CONSULTATION HISTORY OF PRESENT ILLNESS: The patient is a 42-year-old female who apparently had a total hysterectomy on 01/15/2018 which I think was Thursday and was discharged home on Thursday. The patient said she had some abdominal pain for the first few days, but then on postoperatively developed severe pain along with chills and sweats. She did not know she had a fever because she did not check it. The patient said that the pain was somewhat bearable but then on Thursday, it became significantly worse, and she came into the emergency room. While on the emergency room, she was seen on a CAT scan that she had a pelvic abscess, which time she was admitted. The patient subsequently had a drainage done by Interventional Radiology which she noted that operative findings that CT scan showed a complex pelvic collection which was diagnosed as a pelvic abscess. She had a CT-guided placement of an 8-Ukrainian drainage catheter with an anterior pelvic collection 20 mL of purulent drainage removed. The patient felt this drainage subsequently grew gram-negative rods which have not been identified as yet. PHYSICAL EXAMINATION: GENERAL: The patient is a quiet, pleasant female. She is alert, cooperative, oriented to time and place. HEENT: Within normal limits, although the conjunctivae are pale. NECK: Supple. LUNGS: Decreased breath sounds at the bases. HEART: Regular sinus rhythm. ABDOMEN: Catheter was in place and draining. Abdomen is quite tender, and she has positive bowel sounds. EXTREMITIES: Have no CCE. ASSESSMENT AND PLAN: The patient also gives history that whenever she gets IV treatment in this case, Zosyn, she gets severe abdominal pain for about three to four minutes. I had told her that since I am adding two antibiotics, I told her to alert the nurse if she is getting the same feeling with the IV antibiotics. If not, I will discontinue the Zosyn. She has persistent elevated white count, although it did go down from 19 to 15 today. Renal function is within normal limits. At present time, I have ordered clindamycin 600 mg IV piggyback every 8 hours and meropenem 1 gm IV piggyback every 12 hours, and we will hold the Zosyn if she continues to get IV pain from it. Reji Nash MD [facility] # [id number]
[2018-01-27 06:10] LABS: BASO % 0.2 % (0.0-2.0); EOS # 0.3 K/uL (0.0-0.7); EOS % 2.6 % (0.0-4.0); HEMOGLOBIN 7.4 g/dL (12.0-16.0); LYMPH # 1.7 K/uL (1.0-4.3); LYMPH % 13.6 % (20.0-40.0); MEAN CORPUSCULAR HEMOGLOBIN 26.3 pg (27.0-31.0); MEAN CORPUSCULAR HGB CONC 32.1 g/dL (33.0-37.0); MEAN PLATELET VOLUME 7.4 fl (7.2-11.7); MONO # 1.7 K/uL (0.0-0.8); MONO % 13.5 % (0.0-10.0); NEUT # 8.7 K/uL (1.8-7.0); NEUT % 70.1 % (50.0-75.0); RBC 2.83 Mil/uL (3.80-5.20); RED CELL DISTRIBUTION WIDTH 16.3 % (11.5-14.5); WHITE BLOOD COUNT 12.4 K/uL (4.8-10.8)
[2018-01-27 06:38] LABS: ALB/GLOB RATIO 0.9 (1.0-2.1); ALBUMIN 3.2 g/dL (3.5-5.0); ALT/SGPT 122 U/L (9-52); AST/SGOT 62 U/L (14-36); BLOOD UREA NITROGEN 3 mg/dl (7-17); CALCIUM 8.9 mg/dL (8.4-10.2); GFR AFRICAN-AMERICAN > 60; GFR NON-AFRICAN AMERICAN > 60
--- NOTE | 2018-01-27 08:57 | CP.PCM.PN ---
Subjective - Date & Time of Evaluation Date of Evaluation: 01/27/18 Time of Evaluation: 08:52 - Subjective Subjective: general surgery Pt seen and examined this AM while eating breakfast. She reports feeling well, almost feels "normal" except for having some mild pain at the drain and surgical incision site. She denies Nausea,vomiting, cp, fever, diarrhea, constipation. Labs and vitals noted. Pt continues to be tachycardic occasionally. Pulse Ox indicated adequate oxygenation. 5 ml drain output in last 24 hours. PE Gen: Pt sitting in bed in NAD Skin: warm and dry Cardio: s1s2 rrr Lungs: CTA bilaterally Abd: Soft, mildly distended, (+) mild tenderness near drain insertion site, stapled transverse incision is c/d/i. Drain with scant amount of light brown liquid in bag. Extr: (-) calf tenderness bilaterally A/P Pelvic abscess s/p hysterectomy Continue diet No surgical intervention at this time Wound Culture with Gram (-) rods, ID consulted, Merrem and clinda added yesterday. Repeat CT tomorrow to evaluate collection. Tachycardia Pt being followed by cardiology As per chart review, she had trends in the high 90s low 100s from previous visit last month. Objective - Vital Signs/Intake and Output Vital Signs (last 24 hours): Temp Pulse Resp BP Pulse Ox 97.7 F 96 H 20 94/60 L 99 01/27/18 08:00 01/27/18 08:00 01/27/18 08:00 01/27/18 08:00 01/27/18 08:00 Intake and Output: 01/27/18 01/27/18 06:59 18:59 Intake Total 550 Output Total 5 Balance 545 - Medications Medications: Current Medications Piperacillin Sod/Tazobactam (Sod 3.375 gm/ Sodium Chloride) 100 mls @ 100 mls/ hr IVPB Q6 TAO PRN Reason: Protocol Last Admin: 01/27/18 03:36 Dose: 100 mls/hr Clindamycin Phosphate (Cleocin) 600 mg in 50 mls @ 50 mls/hr IVPB Q8 TAO PRN Reason: Protocol Last Admin: 01/27/18 00:45 Dose: 50 mls/hr Meropenem 1 gm/ Sodium (Chloride) 100 mls @ 100 mls/hr IVPB Q12 TAO PRN Reason: Protocol Last Admin: 01/26/18 20:38 Dose: 100 mls/hr Ondansetron HCl (Zofran Inj) 4 mg IVP Q4 PRN PRN Reason: Nausea/Vomiting - Labs Labs: 01/27/18 04:20 01/27/18 04:20 PT 13.6 Seconds (9.8-13.1) H 01/23/18 18:30 INR 1.2 (0.9-1.2) 01/23/18 18:30 APTT 28.4 Seconds (25.6-37.1) 01/23/18 18:30
[2018-01-27] MEDS ORDERED: Oxycodone/Acetaminophen 5/325 mg Tab PO PRN (09:19)
--- NOTE | 2018-01-27 09:41 | CP.PCM.PN ---
Subjective - Date & Time of Evaluation Date of Evaluation: 01/27/18 Time of Evaluation: 09:00 - Subjective Subjective: NO CHEST PAIN, PALPITATIONS OR SOB JUST MILD ABDOMINAL PAIN Objective - Vital Signs/Intake and Output Vital Signs (last 24 hours): Temp Pulse Resp BP Pulse Ox 97.7 F 96 H 20 94/60 L 99 01/27/18 08:00 01/27/18 08:00 01/27/18 08:00 01/27/18 08:00 01/27/18 08:00 Intake and Output: 01/27/18 01/27/18 06:59 18:59 Intake Total 550 Output Total 5 Balance 545 - Medications Medications: Current Medications Acetaminophen (Tylenol 325mg Tab) 650 mg PO Q4 PRN PRN Reason: Pain, Mild (1-3) Piperacillin Sod/Tazobactam (Sod 3.375 gm/ Sodium Chloride) 100 mls @ 100 mls/ hr IVPB Q6 TAO PRN Reason: Protocol Last Admin: 01/27/18 03:36 Dose: 100 mls/hr Clindamycin Phosphate (Cleocin) 600 mg in 50 mls @ 50 mls/hr IVPB Q8 TAO PRN Reason: Protocol Last Admin: 01/27/18 00:45 Dose: 50 mls/hr Meropenem 1 gm/ Sodium (Chloride) 100 mls @ 100 mls/hr IVPB Q12 TAO PRN Reason: Protocol Last Admin: 01/26/18 20:38 Dose: 100 mls/hr Iohexol (Omnipaque 240 (50 Ml)) 0 ml PO ONCE ONE Stop: 01/28/18 05:01 Morphine Sulfate (Morphine) 4 mg IVP Q6 PRN PRN Reason: Pain, severe (8-10) Ondansetron HCl (Zofran Inj) 4 mg IVP Q4 PRN PRN Reason: Nausea/Vomiting Oxycodone/Acetaminophen (Percocet 5/325 Mg Tab) 1 tab PO Q4 PRN PRN Reason: Pain, moderate (4-7) Stop: 01/30/18 09:20 - Labs Labs: 01/27/18 04:20 01/27/18 04:20 PT 13.6 Seconds (9.8-13.1) H 01/23/18 18:30 INR 1.2 (0.9-1.2) 01/23/18 18:30 APTT 28.4 Seconds (25.6-37.1) 01/23/18 18:30 - Respiratory Exam Respiratory Exam: Clear to Ausculation Bilateral - Cardiovascular Exam Cardiovascular Exam: REGULAR RHYTHM, +S1, +S2 - Extremities Exam Extremities Exam: Normal Inspection - Additional Findings 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
[2018-01-27] MEDS: Meropenem 1 GM in Sodium Chloride 0.9% 100 ML IVPB SCH ×2 (10:07→21:03)
--- NOTE | 2018-01-27 17:21 | CP.PCM.PN ---
Subjective - Date & Time of Evaluation Date of Evaluation: 01/27/18 Time of Evaluation: 17:15 - Subjective Subjective: I D NOTE CULTURE:KLEBSIELLA PNEUMONIA SENSITIVE TO BOTH ZOSYN & MEROPENEM PATIENT STATES THAQT SHE HAS NO DIFFICULTY c ANTIOBIOTICS TODAY\HAS NOTED SOME LIGHIHEADEDNESS ON MOVEMENT AND SOME SWEATS WOULD CONTINUE SAME REGIMEN FOR PRESENT TIME Objective - Vital Signs/Intake and Output Vital Signs (last 24 hours): Temp Pulse Resp BP Pulse Ox 98.5 F 97 H 19 101/66 100 01/27/18 16:13 01/27/18 16:13 01/27/18 16:13 01/27/18 16:13 01/27/18 16:13 Intake and Output: 01/27/18 01/27/18 06:59 18:59 Intake Total 550 Output Total 5 Balance 545 - Medications Medications: Current Medications Acetaminophen (Tylenol 325mg Tab) 650 mg PO Q4 PRN PRN Reason: Pain, Mild (1-3) Last Admin: 01/27/18 13:15 Dose: 650 mg Piperacillin Sod/Tazobactam (Sod 3.375 gm/ Sodium Chloride) 100 mls @ 100 mls/ hr IVPB Q6 TAO PRN Reason: Protocol Last Admin: 01/27/18 16:25 Dose: 100 mls/hr Clindamycin Phosphate (Cleocin) 600 mg in 50 mls @ 50 mls/hr IVPB Q8 TAO PRN Reason: Protocol Last Admin: 01/27/18 16:25 Dose: 50 mls/hr Meropenem 1 gm/ Sodium (Chloride) 100 mls @ 100 mls/hr IVPB Q12 TAO PRN Reason: Protocol Last Admin: 01/27/18 10:07 Dose: 100 mls/hr Iohexol (Omnipaque 240 (50 Ml)) 0 ml PO ONCE ONE Stop: 01/28/18 05:01 Morphine Sulfate (Morphine) 4 mg IVP Q6 PRN PRN Reason: Pain, severe (8-10) Ondansetron HCl (Zofran Inj) 4 mg IVP Q4 PRN PRN Reason: Nausea/Vomiting Oxycodone/Acetaminophen (Percocet 5/325 Mg Tab) 1 tab PO Q4 PRN PRN Reason: Pain, moderate (4-7) Stop: 01/30/18 09:20 - Labs Labs: 07/11/18 04:20 01/27/18 04:20 PT 13.6 Seconds (9.8-13.1) H 01/23/18 18:30 INR 1.2 (0.9-1.2) 01/23/18 18:30 APTT 28.4 Seconds (25.6-37.1) 01/23/18 18:30
--- NOTE | 2018-01-27 18:37 | CP.PCM.PN ---
Subjective - Date & Time of Evaluation Date of Evaluation: 01/27/18 Time of Evaluation: 18:34 - Subjective Subjective: had BM today and voiding well less pains denies n/v no chills or fever Objective - Vital Signs/Intake and Output Vital Signs (last 24 hours): Temp Pulse Resp BP Pulse Ox 98.5 F 97 H 19 101/66 100 01/27/18 16:13 01/27/18 16:13 01/27/18 16:13 01/27/18 16:13 01/27/18 16:13 Intake and Output: 01/27/18 01/27/18 06:59 18:59 Intake Total 550 Output Total 5 Balance 545 - Medications Medications: Current Medications Acetaminophen (Tylenol 325mg Tab) 650 mg PO Q4 PRN PRN Reason: Pain, Mild (1-3) Last Admin: 01/27/18 13:15 Dose: 650 mg Piperacillin Sod/Tazobactam (Sod 3.375 gm/ Sodium Chloride) 100 mls @ 100 mls/ hr IVPB Q6 TAO PRN Reason: Protocol Last Admin: 01/27/18 16:25 Dose: 100 mls/hr Clindamycin Phosphate (Cleocin) 600 mg in 50 mls @ 50 mls/hr IVPB Q8 TAO PRN Reason: Protocol Last Admin: 01/27/18 16:25 Dose: 50 mls/hr Meropenem 1 gm/ Sodium (Chloride) 100 mls @ 100 mls/hr IVPB Q12 TAO PRN Reason: Protocol Last Admin: 01/27/18 10:07 Dose: 100 mls/hr Iohexol (Omnipaque 240 (50 Ml)) 0 ml PO ONCE ONE Stop: 01/28/18 05:01 Morphine Sulfate (Morphine) 4 mg IVP Q6 PRN PRN Reason: Pain, severe (8-10) Ondansetron HCl (Zofran Inj) 4 mg IVP Q4 PRN PRN Reason: Nausea/Vomiting Oxycodone/Acetaminophen (Percocet 5/325 Mg Tab) 1 tab PO Q4 PRN PRN Reason: Pain, moderate (4-7) Stop: 01/30/18 09:20 - Labs Labs: 01/27/18 04:20 01/27/18 04:20 PT 13.6 Seconds (9.8-13.1) H 01/23/18 18:30 INR 1.2 (0.9-1.2) 01/23/18 18:30 APTT 28.4 Seconds (25.6-37.1) 01/23/18 18:30 - Head Exam Head Exam: ATRAUMATIC - Neck Exam Neck Exam: Full ROM - Respiratory Exam Respiratory Exam: NORMAL BREATHING PATTERN - GI/Abdominal Exam Additional comments: soft less tender not distended drain bag in place Incision clean and dry no suppt or sign of infection cynthia in place - Exam External exam: NORMAL EXTERNAL EXAM Additional comments: no active vaginal bleed - Extremities Exam Additional comments: no leg edema or calf tenderness - Neurological Exam Neurological Exam: Alert, Awake, Oriented x3 - Psychiatric Exam Psychiatric exam: Normal Affect, Normal Mood Assessment and Plan (2) Pelvic abscess in female Status: Acute - Assessment and Plan (Free Text) Assessment: improving Plan: CBC showed wbc decreasing and H/H stable, less drainage yesterday Pending Cat scan repeat for tomorrow and cult reviewed Continue IV antibiotics and present management Pt was explained all of above and understands and agreed with plan .
[2018-01-28] MEDS: Clindamycin 600mg/50ml D5W 600 MG/50 ML VIAL IVPB SCH ×3 (02:10→16:43)
[2018-01-28] MEDS: Piperacillin/Tazobact 3.375 GM in Sodium Chloride 0.9% 100 ML IVPB SCH ×4 (03:25→22:10)
[2018-01-28] MEDS ORDERED: Iohexol 240 (50 ml) PO ONE (05:00)
[2018-01-28 05:40] LABS: BASO # 0.1 K/uL (0.0-0.2); BASO % 0.4 % (0.0-2.0); EOS # 0.2 K/uL (0.0-0.7); EOS % 1.9 % (0.0-4.0); HEMOGLOBIN 7.9 g/dL (12.0-16.0); LYMPH % 16.2 % (20.0-40.0); MEAN CELL VOLUME 80.9 fl (81.0-99.0); MEAN CORPUSCULAR HEMOGLOBIN 26.4 pg (27.0-31.0); MEAN CORPUSCULAR HGB CONC 32.7 g/dL (33.0-37.0); MEAN PLATELET VOLUME 7.3 fl (7.2-11.7); MONO # 1.5 K/uL (0.0-0.8); MONO % 12.1 % (0.0-10.0); NEUT # 8.8 K/uL (1.8-7.0); NEUT % 69.4 % (50.0-75.0); RBC 2.98 Mil/uL (3.80-5.20); RED CELL DISTRIBUTION WIDTH 16.8 % (11.5-14.5); WHITE BLOOD COUNT 12.6 K/uL (4.8-10.8)
[2018-01-28 06:30] LABS: ALB/GLOB RATIO 0.8 (1.0-2.1); ALBUMIN 3.2 g/dL (3.5-5.0); BLOOD UREA NITROGEN 3 mg/dl (7-17); CALCIUM 8.8 mg/dL (8.4-10.2); GFR AFRICAN-AMERICAN > 60; GFR NON-AFRICAN AMERICAN > 60
[2018-01-28 06:31] LABS: ALT/SGPT 98 U/L (9-52); AST/SGOT 35 U/L (14-36)
--- NOTE | 2018-01-28 07:14 | CP.PCM.PN ---
<HermanTierra - Last Filed: 01/28/18 07:12> Subjective - Date & Time of Evaluation Date of Evaluation: 01/28/18 Time of Evaluation: 07:12 - Subjective Subjective: General Surgery - Dr. Yates Pt S&EJuana TRENT. Pt states her pain continues to improve today. She is currently having some nausea and cramping while drinking the PO contrast. She is tolerating regular diet and having BMs. She denies any Fevers/Chills/SOB/ Chest pains/Vomiting. IR drain in place with 10cc cardona purulent drainage /24hrs. Objective - Vital Signs/Intake and Output Vital Signs (last 24 hours): Temp Pulse Resp BP Pulse Ox 98.3 F 99 H 18 97/63 L 99 01/28/18 05:00 01/28/18 05:00 01/28/18 05:00 01/28/18 05:00 01/28/18 05:00 - Medications Medications: Current Medications Acetaminophen (Tylenol 325mg Tab) 650 mg PO Q4 PRN PRN Reason: Pain, Mild (1-3) Last Admin: 01/27/18 13:15 Dose: 650 mg Piperacillin Sod/Tazobactam (Sod 3.375 gm/ Sodium Chloride) 100 mls @ 100 mls/ hr IVPB Q6 TAO PRN Reason: Protocol Last Admin: 01/28/18 03:25 Dose: 100 mls/hr Clindamycin Phosphate (Cleocin) 600 mg in 50 mls @ 50 mls/hr IVPB Q8 TAO PRN Reason: Protocol Last Admin: 01/28/18 02:10 Dose: 50 mls/hr Meropenem 1 gm/ Sodium (Chloride) 100 mls @ 100 mls/hr IVPB Q12 TAO PRN Reason: Protocol Last Admin: 01/27/18 21:03 Dose: 100 mls/hr Morphine Sulfate (Morphine) 4 mg IVP Q6 PRN PRN Reason: Pain, severe (8-10) Ondansetron HCl (Zofran Inj) 4 mg IVP Q4 PRN PRN Reason: Nausea/Vomiting Oxycodone/Acetaminophen (Percocet 5/325 Mg Tab) 1 tab PO Q4 PRN PRN Reason: Pain, moderate (4-7) Stop: 01/30/18 09:20 Last Admin: 01/27/18 21:01 Dose: 1 tab - Labs Labs: 01/28/18 05:05 01/28/18 05:05 PT 13.6 Seconds (9.8-13.1) H 01/23/18 18:30 INR 1.2 (0.9-1.2) 01/23/18 18:30 APTT 28.4 Seconds (25.6-37.1) 01/23/18 18:30 - Constitutional Appears: No Acute Distress - Head Exam Head Exam: ATRAUMATIC, NORMAL INSPECTION - Eye Exam Eye Exam: EOMI, Normal appearance - ENT Exam ENT Exam: Mucous Membranes Moist - Respiratory Exam Respiratory Exam: NORMAL BREATHING PATTERN. absent: Respiratory Distress - GI/Abdominal Exam GI & Abdominal Exam: Distended (stable), Soft, Tenderness (mild ttp pelvic region). absent: Firm, Guarding, Rigid, Rebound - Neurological Exam Neurological Exam: Alert, Oriented x3 - Psychiatric Exam Psychiatric exam: Normal Affect, Normal Mood - Skin Skin Exam: Dry, Intact Assessment and Plan - Assessment and Plan (Free Text) Assessment: 42 yo F w/ Pelvic abscess s/p Hysterectomy -Cultures with Klebsiella pneumonia sensitive to Merrem and Zosyn -Continue current Abx regimen as per ID -Continue Regular diet -F/U CT abd/pelvis today to reassess collection -Encourage OOB/Ambulation DW Dr. Milan Sutton PGY4 <Werner Yates - Last Filed: 01/28/18 14:23> Subjective - Date & Time of Evaluation Time of Evaluation: 14:00 - Subjective Subjective: Patient was seen and examined at the bedside. Agree with resident's note above. CT scan results noted. Objective - Vital Signs/Intake and Output Vital Signs (last 24 hours): Temp Pulse Resp BP Pulse Ox 98.2 F 102 H 20 90/57 L 100 01/28/18 13:00 01/28/18 13:00 01/28/18 13:00 01/28/18 13:00 01/28/18 13:00 - Medications Medications: Current Medications Acetaminophen (Tylenol 325mg Tab) 650 mg PO Q4 PRN PRN Reason: Pain, Mild (1-3) Last Admin: 01/27/18 13:15 Dose: 650 mg Piperacillin Sod/Tazobactam (Sod 3.375 gm/ Sodium Chloride) 100 mls @ 100 mls/ hr IVPB Q6 TAO PRN Reason: Protocol Last Admin: 01/28/18 09:11 Dose: 100 mls/hr Clindamycin Phosphate (Cleocin) 600 mg in 50 mls @ 50 mls/hr IVPB Q8 TAO PRN Reason: Protocol Last Admin: 01/28/18 09:10 Dose: 50 mls/hr Meropenem 1 gm/ Sodium (Chloride) 100 mls @ 100 mls/hr IVPB Q12 TAO PRN Reason: Protocol Last Admin: 01/28/18 09:09 Dose: 100 mls/hr Morphine Sulfate (Morphine) 4 mg IVP Q6 PRN PRN Reason: Pain, severe (8-10) Ondansetron HCl (Zofran Inj) 4 mg IVP Q4 PRN PRN Reason: Nausea/Vomiting Oxycodone/Acetaminophen (Percocet 5/325 Mg Tab) 1 tab PO Q4 PRN PRN Reason: Pain, moderate (4-7) Stop: 01/30/18 09:20 Last Admin: 01/27/18 21:01 Dose: 1 tab - Labs Labs: 01/28/18 05:05 01/28/18 05:05 PT 13.6 Seconds (9.8-13.1) H 01/23/18 18:30 INR 1.2 (0.9-1.2) 01/23/18 18:30 APTT 28.4 Seconds (25.6-37.1) 01/23/18 18:30 Assessment and Plan - Assessment and Plan (Free Text) Plan: - Continue diet - pain control - Antibiotics as per ID - Will touch base with IR for potential drainage of the pelvic collection - repeat labs in am - DVT ppx - Will follow
[2018-01-28] MEDS: Meropenem 1 GM in Sodium Chloride 0.9% 100 ML IVPB SCH ×2 (09:09→21:01)
[2018-01-28] MEDS ORDERED: Sodium Chloride 0.9% 50 ML IV ONE (09:24)
[2018-01-28] MEDS ORDERED: Iohexol 300 100 ML IJ ONE (09:24)
--- NOTE | 2018-01-28 10:39 | CP.PCM.PN ---
Subjective - Date & Time of Evaluation Date of Evaluation: 01/28/18 Time of Evaluation: 09:15 - Subjective Subjective: NO NEW COMPLAINTS LESS ABDOMINAL PAIN Objective - Vital Signs/Intake and Output Vital Signs (last 24 hours): Temp Pulse Resp BP Pulse Ox 98.6 F 105 H 20 94/57 L 98 01/28/18 08:00 01/28/18 08:00 01/28/18 08:00 01/28/18 08:00 01/28/18 08:00 - Medications Medications: Current Medications Acetaminophen (Tylenol 325mg Tab) 650 mg PO Q4 PRN PRN Reason: Pain, Mild (1-3) Last Admin: 01/27/18 13:15 Dose: 650 mg Piperacillin Sod/Tazobactam (Sod 3.375 gm/ Sodium Chloride) 100 mls @ 100 mls/ hr IVPB Q6 TAO PRN Reason: Protocol Last Admin: 01/28/18 09:11 Dose: 100 mls/hr Clindamycin Phosphate (Cleocin) 600 mg in 50 mls @ 50 mls/hr IVPB Q8 TAO PRN Reason: Protocol Last Admin: 01/28/18 09:10 Dose: 50 mls/hr Meropenem 1 gm/ Sodium (Chloride) 100 mls @ 100 mls/hr IVPB Q12 TAO PRN Reason: Protocol Last Admin: 01/28/18 09:09 Dose: 100 mls/hr Morphine Sulfate (Morphine) 4 mg IVP Q6 PRN PRN Reason: Pain, severe (8-10) Ondansetron HCl (Zofran Inj) 4 mg IVP Q4 PRN PRN Reason: Nausea/Vomiting Oxycodone/Acetaminophen (Percocet 5/325 Mg Tab) 1 tab PO Q4 PRN PRN Reason: Pain, moderate (4-7) Stop: 01/30/18 09:20 Last Admin: 01/27/18 21:01 Dose: 1 tab - Labs Labs: 01/28/18 05:05 01/28/18 05:05 PT 13.6 Seconds (9.8-13.1) H 01/23/18 18:30 INR 1.2 (0.9-1.2) 01/23/18 18:30 APTT 28.4 Seconds (25.6-37.1) 07/07/18 18:30 - Respiratory Exam Respiratory Exam: Clear to Ausculation Bilateral - Cardiovascular Exam Cardiovascular Exam: REGULAR RHYTHM, +S1, +S2 - Extremities Exam Extremities Exam: Normal Inspection Assessment and Plan - Assessment and Plan (Free Text) Assessment: PELVIC ABSCESS WITH DRAINAGE Plan: CONTINUE IV ANTIBIOTICS FOR CT OF ABDOMEN/PELVIS TODAY
--- NOTE | 2018-01-28 11:43 | CT ---
Date of service: 01/28/2018 PROCEDURE: CT Abdomen and Pelvis with contrast HISTORY: reassess pelvic collection COMPARISON: Comparison is made with the previous study dated 01/23/2018 TECHNIQUE: Contrast dose: 95 cc of Omnipaque 300. Axial and reformatted coronal and sagittal CT images of the abdomen and pelvis were obtained after IV and oral contrast administration. Radiation dose: Total exam DLP = 314.9 mGy-cm. This CT exam was performed using one or more of the following dose reduction techniques: Automated exposure control, adjustment of the mA and/or kV according to patient size, and/or use of iterative reconstruction technique. FINDINGS: LOWER THORAX: Small opacities at the lung bases are noted likely atelectasis. There are trace bilateral pleural effusions noted slightly larger on the right. LIVER: No evidence of acute pathology in the liver. The portal vein is patent. GALLBLADDER AND BILE DUCTS: No evidence of cholecystitis or biliary obstruction. PANCREAS: Unremarkable. No gross lesion or ductal dilatation. SPLEEN: Unremarkable. ADRENALS: Unremarkable. No mass. KIDNEYS AND URETERS: Unremarkable. No hydronephrosis. No solid mass. VASCULATURE: Unremarkable. No aortic aneurysm. BOWEL: No evidence of high-grade bowel obstruction. Small bowel wall thickening noted in the lower abdomen may represent enteritis or small bowel wall edema. Focal wall thickening is noted at the cecum. APPENDIX: No evidence of appendicitis PERITONEUM: There is a trace fluid in the lower abdomen and pelvis. There is diffuse mesenteric stranding and edema noted. Interval decrease in the amount of extraluminal air at the anterior pelvic wall and anterior aspect of the pelvis since the previous exam. Interval almost complete resolving of the previously seen abscess formation at the anterior aspect of the pelvis since the previous study. The drainage catheter is seen in place. There is enhancing wall fluid collection at the posterior aspect of the pelvis posterior to the bladder measures 5.1 centimeter in the transverse diameter and 2.6 in the a meet diameter there is a enhancing wall fluid collection in the right lower abdomen adjacent to the cecum measures 4.5 centimeter in the transverse diameter and 2.2 centimeter in the AP diameter. There is also fluid collection in the left lower abdomen measures 4.7 centimeter in the transverse diameter and 1.6 centimeter in the AP diameter. LYMPH NODES: Unremarkable. No enlarged lymph nodes. BLADDER: Mild urinary bladder wall thickening is noted. REPRODUCTIVE: The patient is status post hysterectomy. BONES: No acute fracture. OTHER FINDINGS: None. IMPRESSION: Interval almost complete resolving of the anterior pelvic abscess around the drainage catheter tip since the previous exam. Enhancing wall fluid collection at the posterior aspect of the lower pelvis measures 5.1 x 2.6 centimeter. Fluid collection at the right lower abdomen adjacent to the cecum and small fluid collection at the left lower abdomen as described above. Postsurgical changes in the pelvis and anterior pelvic wall again noted. Diffuse mesenteric stranding and edema in the lower abdomen and pelvis associated with small free fluid. Small bowel wall thickening in the lower abdomen could represent enteritis or reactive changes from the adjacent infection/ inflammatory process.
--- NOTE | 2018-01-28 20:19 | CP.PCM.PN ---
Subjective - Date & Time of Evaluation Date of Evaluation: 01/28/18 Time of Evaluation: 20:16 - Subjective Subjective: Less pains today but still tenderness in all abd, had some nausea this am after the po cat scan contrast but no vomiting Denies C/F voiding well and had bm+ Objective - Vital Signs/Intake and Output Vital Signs (last 24 hours): Temp Pulse Resp BP Pulse Ox 98.9 F 95 H 18 96/62 L 98 01/28/18 20:11 01/28/18 20:11 01/28/18 20:11 01/28/18 20:11 01/28/18 20:11 - Medications Medications: Current Medications Acetaminophen (Tylenol 325mg Tab) 650 mg PO Q4 PRN PRN Reason: Pain, Mild (1-3) Last Admin: 01/28/18 16:43 Dose: 650 mg Piperacillin Sod/Tazobactam (Sod 3.375 gm/ Sodium Chloride) 100 mls @ 100 mls/ hr IVPB Q6 TAO PRN Reason: Protocol Last Admin: 01/28/18 16:42 Dose: 100 mls/hr Clindamycin Phosphate (Cleocin) 600 mg in 50 mls @ 50 mls/hr IVPB Q8 TAO PRN Reason: Protocol Last Admin: 01/28/18 16:43 Dose: 50 mls/hr Meropenem 1 gm/ Sodium (Chloride) 100 mls @ 100 mls/hr IVPB Q12 TAO PRN Reason: Protocol Last Admin: 01/28/18 09:09 Dose: 100 mls/hr Morphine Sulfate (Morphine) 4 mg IVP Q6 PRN PRN Reason: Pain, severe (8-10) Ondansetron HCl (Zofran Inj) 4 mg IVP Q4 PRN PRN Reason: Nausea/Vomiting Oxycodone/Acetaminophen (Percocet 5/325 Mg Tab) 1 tab PO Q4 PRN PRN Reason: Pain, moderate (4-7) Stop: 01/30/18 09:20 Last Admin: 01/27/18 21:01 Dose: 1 tab - Labs Labs: 01/28/18 05:05 01/28/18 05:05 PT 13.6 Seconds (9.8-13.1) H 01/23/18 18:30 INR 1.2 (0.9-1.2) 01/23/18 18:30 APTT 28.4 Seconds (25.6-37.1) 01/23/18 18:30 - Head Exam Head Exam: ATRAUMATIC - Neck Exam Neck Exam: Full ROM - Respiratory Exam Respiratory Exam: NORMAL BREATHING PATTERN - GI/Abdominal Exam Additional comments: soft ND less tenderness but still some generalized tenderness present Drain in place 10cc past 24 hrs Incision clean and dry cynthia in place - Extremities Exam Additional comments: no leg edema or calf tenderness - Neurological Exam Neurological Exam: Alert, Awake, Oriented x3 Assessment and Plan (2) Pelvic abscess in female Status: Acute - Assessment and Plan (Free Text) Assessment: appears improving Plan: Cat scan done and showed almost resolution of intra-abdominal abscess CBC stable and liver enzymes still coming down Will discuss with surgery and ID to see if removing drain soon Continue IV antibiotics and encourage OOB and ambulation Discussed with pt and understands and agreed.
[2018-01-29] MEDS: Clindamycin 600mg/50ml D5W 600 MG/50 ML VIAL IVPB SCH ×3 (00:18→17:06)
[2018-01-29] MEDS: Piperacillin/Tazobact 3.375 GM in Sodium Chloride 0.9% 100 ML IVPB SCH ×4 (03:24→22:29)
[2018-01-29 06:06] LABS: ALB/GLOB RATIO 0.8 (1.0-2.1); ALBUMIN 3.1 g/dL (3.5-5.0); ALT/SGPT 65 U/L (9-52); AST/SGOT 42 U/L (14-36); BLOOD UREA NITROGEN 4 mg/dl (7-17); CALCIUM 8.8 mg/dL (8.4-10.2); GFR AFRICAN-AMERICAN > 60; GFR NON-AFRICAN AMERICAN > 60
[2018-01-29 06:38] LABS: BASO # 0.1 K/uL (0.0-0.2); BASO % 0.6 % (0.0-2.0); EOS # 0.2 K/uL (0.0-0.7); EOS % 1.3 % (0.0-4.0); HEMOGLOBIN 7.1 g/dL (12.0-16.0); LYMPH # 1.7 K/uL (1.0-4.3); LYMPH % 11.9 % (20.0-40.0); MEAN CELL VOLUME 81.3 fl (81.0-99.0); MEAN PLATELET VOLUME 7.2 fl (7.2-11.7); MONO # 1.5 K/uL (0.0-0.8); MONO % 10.4 % (0.0-10.0); NEUT # 10.8 K/uL (1.8-7.0); NEUT % 75.8 % (50.0-75.0); NRBC % 0.1 % (0.0-0.0); RBC 2.73 Mil/uL (3.80-5.20); RED CELL DISTRIBUTION WIDTH 16.9 % (11.5-14.5); WHITE BLOOD COUNT 14.3 K/uL (4.8-10.8)
--- NOTE | 2018-01-29 07:43 | CP.PCM.PN ---
Subjective - Date & Time of Evaluation Date of Evaluation: 01/29/18 Time of Evaluation: 07:40 - Subjective Subjective: General Surgery Dr. Yates Pt SE @bedside. Pt underwent CT A/P yesterday for re-evaluation of pelvic abscess. IR consulted for remaining fluid collection(s), however too small for intervention. NAEO. pt resting comfortably on rounds. (-)F/C, N/V, D/C. tolerating regular diet. IR drain 10cc x24hrs Objective - Vital Signs/Intake and Output Vital Signs (last 24 hours): Temp Pulse Resp BP Pulse Ox 98.1 F 86 16 92/55 L 99 01/29/18 05:00 01/29/18 05:00 01/29/18 05:00 01/29/18 05:00 01/29/18 05:00 - Medications Medications: Current Medications Acetaminophen (Tylenol 325mg Tab) 650 mg PO Q4 PRN PRN Reason: Pain, Mild (1-3) Last Admin: 01/29/18 03:22 Dose: 650 mg Piperacillin Sod/Tazobactam (Sod 3.375 gm/ Sodium Chloride) 100 mls @ 100 mls/ hr IVPB Q6 TAO PRN Reason: Protocol Last Admin: 01/29/18 03:24 Dose: 100 mls/hr Clindamycin Phosphate (Cleocin) 600 mg in 50 mls @ 50 mls/hr IVPB Q8 TAO PRN Reason: Protocol Last Admin: 01/29/18 00:18 Dose: 50 mls/hr Meropenem 1 gm/ Sodium (Chloride) 100 mls @ 100 mls/hr IVPB Q12 TAO PRN Reason: Protocol Last Admin: 01/28/18 21:01 Dose: 100 mls/hr Morphine Sulfate (Morphine) 4 mg IVP Q6 PRN PRN Reason: Pain, severe (8-10) Ondansetron HCl (Zofran Inj) 4 mg IVP Q4 PRN PRN Reason: Nausea/Vomiting Last Admin: 01/28/18 21:00 Dose: 4 mg Oxycodone/Acetaminophen (Percocet 5/325 Mg Tab) 1 tab PO Q4 PRN PRN Reason: Pain, moderate (4-7) Stop: 01/30/18 09:20 Last Admin: 01/27/18 21:01 Dose: 1 tab - Labs Labs: 01/29/18 05:00 01/29/18 05:00 PT 13.6 Seconds (9.8-13.1) H 01/23/18 18:30 INR 1.2 (0.9-1.2) 01/23/18 18:30 APTT 28.4 Seconds (25.6-37.1) 01/23/18 18:30 - Constitutional Appears: Non-toxic, No Acute Distress - Head Exam Head Exam: NORMAL INSPECTION - Eye Exam Eye Exam: Normal appearance - ENT Exam ENT Exam: Mucous Membranes Moist - Respiratory Exam Respiratory Exam: NORMAL BREATHING PATTERN. absent: Accessory Muscle Use, Respiratory Distress - Cardiovascular Exam Cardiovascular Exam: REGULAR RHYTHM. absent: Bradycardia, Tachycardia - GI/Abdominal Exam GI & Abdominal Exam: Soft. absent: Distended, Guarding, Tenderness, Rebound Additional comments: IR drain in place w/ scant drainage - Extremities Exam Extremities Exam: Normal Inspection. absent: Pedal Edema - Neurological Exam Neurological Exam: Alert, Awake, Oriented x3 - Psychiatric Exam Psychiatric exam: Normal Affect, Normal Mood - Skin Skin Exam: Dry, Intact, Normal Color, Warm Assessment and Plan - Assessment and Plan (Free Text) Assessment: 42 y/o F w/ Pelvic abscess s/p Hysterectomy - cont Abx per ID - cont Regular diet - daily flushes of IR drain - monitor drain output - encourage OOB to chair/Amb Pt discussed w/ Dr. Milan Zheng DO PGY3
--- NOTE | 2018-01-29 08:42 | CP.PCM.PN ---
Subjective - Date & Time of Evaluation Date of Evaluation: 01/29/18 Time of Evaluation: 08:38 - Subjective Subjective: General Surgery Pt seen and examined this AM. She reports feeling better. (-) N/V. Pt does report having some abdominal pain. (-) fever. Labs and vitals noted. WBC increased to 14.3 from 12.6 PE Gen: Pt laying in bed in NAD Skin: warm and dry Cardio: S1S2 RRR Lungs: CTA bilaterally Abd: (+) LUQ and LLQ tenderness, transverse stapled surgical incision, c/d/i. ( +) drain in place with ~20ml light brown drainage in bag (as per pt bag was emptied last night) Extr: (-) calf tenderness bilaterally A/P Pelvic abscess, sepsis s/p hysterectomy Repeat CT results noted, no drainable collection as per IR Drain to remain in place while pt is admitted as per Dr. Yates. Continue antibiotics per ID Continue diet Monitor drain output Objective - Vital Signs/Intake and Output Vital Signs (last 24 hours): Temp Pulse Resp BP Pulse Ox 98.1 F 83 18 91/55 L 99 01/29/18 08:12 01/29/18 08:12 01/29/18 08:12 01/29/18 08:12 01/29/18 08:12 - Medications Medications: Current Medications Acetaminophen (Tylenol 325mg Tab) 650 mg PO Q4 PRN PRN Reason: Pain, Mild (1-3) Last Admin: 01/29/18 03:22 Dose: 650 mg Piperacillin Sod/Tazobactam (Sod 3.375 gm/ Sodium Chloride) 100 mls @ 100 mls/ hr IVPB Q6 ATO PRN Reason: Protocol Last Admin: 01/29/18 03:24 Dose: 100 mls/hr Clindamycin Phosphate (Cleocin) 600 mg in 50 mls @ 50 mls/hr IVPB Q8 TAO PRN Reason: Protocol Last Admin: 01/29/18 00:18 Dose: 50 mls/hr Meropenem 1 gm/ Sodium (Chloride) 100 mls @ 100 mls/hr IVPB Q12 TAO PRN Reason: Protocol Last Admin: 01/28/18 21:01 Dose: 100 mls/hr Morphine Sulfate (Morphine) 4 mg IVP Q6 PRN PRN Reason: Pain, severe (8-10) Ondansetron HCl (Zofran Inj) 4 mg IVP Q4 PRN PRN Reason: Nausea/Vomiting Last Admin: 01/28/18 21:00 Dose: 4 mg Oxycodone/Acetaminophen (Percocet 5/325 Mg Tab) 1 tab PO Q4 PRN PRN Reason: Pain, moderate (4-7) Stop: 01/30/18 09:20 Last Admin: 01/27/18 21:01 Dose: 1 tab - Labs Labs: 01/29/18 05:00 01/29/18 05:00 PT 13.6 Seconds (9.8-13.1) H 01/23/18 18:30 INR 1.2 (0.9-1.2) 01/23/18 18:30 APTT 28.4 Seconds (25.6-37.1) 01/23/18 18:30
[2018-01-29] MEDS: Meropenem 1 GM in Sodium Chloride 0.9% 100 ML IVPB SCH ×2 (09:02→21:02)
--- NOTE | 2018-01-29 13:31 | CP.PCM.PN ---
Subjective - Date & Time of Evaluation Date of Evaluation: 01/29/18 Time of Evaluation: 08:00 - Subjective Subjective: NO CHEST PAIN OR SOB LESS ABDOMINAL PAIN Objective - Vital Signs/Intake and Output Vital Signs (last 24 hours): Temp Pulse Resp BP Pulse Ox 98.1 F 91 H 18 99/64 L 100 01/29/18 12:05 01/29/18 12:05 01/29/18 12:05 01/29/18 12:05 01/29/18 12:05 - Medications Medications: Current Medications Acetaminophen (Tylenol 325mg Tab) 650 mg PO Q4 PRN PRN Reason: Pain, Mild (1-3) Last Admin: 01/29/18 11:52 Dose: 650 mg Piperacillin Sod/Tazobactam (Sod 3.375 gm/ Sodium Chloride) 100 mls @ 100 mls/ hr IVPB Q6 TAO PRN Reason: Protocol Last Admin: 01/29/18 09:03 Dose: 100 mls/hr Clindamycin Phosphate (Cleocin) 600 mg in 50 mls @ 50 mls/hr IVPB Q8 TAO PRN Reason: Protocol Last Admin: 01/29/18 09:00 Dose: 50 mls/hr Meropenem 1 gm/ Sodium (Chloride) 100 mls @ 100 mls/hr IVPB Q12 TAO PRN Reason: Protocol Last Admin: 01/29/18 09:02 Dose: 100 mls/hr Morphine Sulfate (Morphine) 4 mg IVP Q6 PRN PRN Reason: Pain, severe (8-10) Ondansetron HCl (Zofran Inj) 4 mg IVP Q4 PRN PRN Reason: Nausea/Vomiting Last Admin: 01/28/18 21:00 Dose: 4 mg Oxycodone/Acetaminophen (Percocet 5/325 Mg Tab) 1 tab PO Q4 PRN PRN Reason: Pain, moderate (4-7) Stop: 01/30/18 09:20 Last Admin: 01/27/18 21:01 Dose: 1 tab - Labs Labs: 01/29/18 05:00 01/29/18 05:00 PT 13.6 Seconds (9.8-13.1) H 01/23/18 18:30 INR 1.2 (0.9-1.2) 01/23/18 18:30 APTT 28.4 Seconds (25.6-37.1) 01/23/18 18:30 - Respiratory Exam Respiratory Exam: Clear to Ausculation Bilateral - Cardiovascular Exam Cardiovascular Exam: REGULAR RHYTHM, +S1, +S2 - Back Exam Back Exam: NORMAL INSPECTION - Additional Findings Additional findings: CT OF ABDOMEN/PELVIC 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
--- NOTE | 2018-01-29 14:27 | CP.PCM.PN ---
Subjective - Date & Time of Evaluation Date of Evaluation: 01/29/18 Time of Evaluation: 12:30 - Subjective Subjective: Still with some pains but better Denies N/V jVoiding well and BM+ No C/F Objective - Vital Signs/Intake and Output Vital Signs (last 24 hours): Temp Pulse Resp BP Pulse Ox 98.1 F 91 H 18 99/64 L 100 01/29/18 12:05 01/29/18 12:05 01/29/18 12:05 01/29/18 12:05 01/29/18 12:05 - Medications Medications: Current Medications Acetaminophen (Tylenol 325mg Tab) 650 mg PO Q4 PRN PRN Reason: Pain, Mild (1-3) Last Admin: 01/29/18 11:52 Dose: 650 mg Piperacillin Sod/Tazobactam (Sod 3.375 gm/ Sodium Chloride) 100 mls @ 100 mls/ hr IVPB Q6 TAO PRN Reason: Protocol Last Admin: 01/29/18 09:03 Dose: 100 mls/hr Clindamycin Phosphate (Cleocin) 600 mg in 50 mls @ 50 mls/hr IVPB Q8 TAO PRN Reason: Protocol Last Admin: 01/29/18 09:00 Dose: 50 mls/hr Meropenem 1 gm/ Sodium (Chloride) 100 mls @ 100 mls/hr IVPB Q12 TAO PRN Reason: Protocol Last Admin: 01/29/18 09:02 Dose: 100 mls/hr Morphine Sulfate (Morphine) 4 mg IVP Q6 PRN PRN Reason: Pain, severe (8-10) Ondansetron HCl (Zofran Inj) 4 mg IVP Q4 PRN PRN Reason: Nausea/Vomiting Last Admin: 01/28/18 21:00 Dose: 4 mg Oxycodone/Acetaminophen (Percocet 5/325 Mg Tab) 1 tab PO Q4 PRN PRN Reason: Pain, moderate (4-7) Stop: 01/30/18 09:20 Last Admin: 01/27/18 21:01 Dose: 1 tab - Labs Labs: 01/29/18 05:00 01/29/18 05:00 PT 13.6 Seconds (9.8-13.1) H 01/23/18 18:30 INR 1.2 (0.9-1.2) 01/23/18 18:30 APTT 28.4 Seconds (25.6-37.1) 01/23/18 18:30 - Head Exam Head Exam: NORMAL INSPECTION - Neck Exam Neck Exam: Full ROM - Respiratory Exam Respiratory Exam: NORMAL BREATHING PATTERN - GI/Abdominal Exam Additional comments: Drain in place with more drainage than yesterday Abd soft not distended still with some diffuse tenderness but no rebound Incision clean and dry no suppt or discharge cynthia in place - Extremities Exam Additional comments: no leg edema or calf tenderness - Neurological Exam Neurological Exam: Alert, Awake, Oriented x3 Assessment and Plan (2) Pelvic abscess in female Status: Acute - Assessment and Plan (Free Text) Assessment: Slight increase in WBC today but otherwise improving Plan: Discussed with Dr Avila who had reviewed repaeated CAT scan with radiology and too small pockets for drainage Also discussed with ID and will continue with present management and IV antibiotics and pain management.
[2018-01-30] MEDS: Clindamycin 600mg/50ml D5W 600 MG/50 ML VIAL IVPB SCH ×3 (00:21→17:53)
[2018-01-30] MEDS: Piperacillin/Tazobact 3.375 GM in Sodium Chloride 0.9% 100 ML IVPB SCH ×2 (04:01→10:14)
--- NOTE | 2018-01-30 09:15 | CP.PCM.PN ---
<Anaid Harris - Last Filed: 01/30/18 09:12> Subjective - Date & Time of Evaluation Date of Evaluation: 01/30/18 Time of Evaluation: 09:12 - Subjective Subjective: Surgery PT seen and examined. No acute events. Denies fever, nausea, diarrhea. Voiding. BM + . Pain controlled. + amb Objective - Vital Signs/Intake and Output Vital Signs (last 24 hours): Temp Pulse Resp BP Pulse Ox 98.4 F 95 H 18 94/61 L 99 01/30/18 08:02 01/30/18 08:02 01/30/18 08:02 01/30/18 08:02 01/30/18 08:02 - Medications Medications: Current Medications Acetaminophen (Tylenol 325mg Tab) 650 mg PO Q4 PRN PRN Reason: Pain, Mild (1-3) Last Admin: 01/29/18 20:10 Dose: 650 mg Piperacillin Sod/Tazobactam (Sod 3.375 gm/ Sodium Chloride) 100 mls @ 100 mls/ hr IVPB Q6 TAO PRN Reason: Protocol Last Admin: 01/30/18 04:01 Dose: 100 mls/hr Clindamycin Phosphate (Cleocin) 600 mg in 50 mls @ 50 mls/hr IVPB Q8 TAO PRN Reason: Protocol Last Admin: 01/30/18 00:21 Dose: 50 mls/hr Meropenem 1 gm/ Sodium (Chloride) 100 mls @ 100 mls/hr IVPB Q12 TAO PRN Reason: Protocol Last Admin: 01/29/18 21:02 Dose: 100 mls/hr Morphine Sulfate (Morphine) 4 mg IVP Q6 PRN PRN Reason: Pain, severe (8-10) Ondansetron HCl (Zofran Inj) 4 mg IVP Q4 PRN PRN Reason: Nausea/Vomiting Last Admin: 01/28/18 21:00 Dose: 4 mg Oxycodone/Acetaminophen (Percocet 5/325 Mg Tab) 1 tab PO Q4 PRN PRN Reason: Pain, moderate (4-7) Stop: 01/30/18 09:20 Last Admin: 01/27/18 21:01 Dose: 1 tab - Labs Labs: 01/29/18 05:00 01/29/18 05:00 PT 13.6 Seconds (9.8-13.1) H 01/23/18 18:30 INR 1.2 (0.9-1.2) 01/23/18 18:30 APTT 28.4 Seconds (25.6-37.1) 01/23/18 18:30 - Constitutional Appears: No Acute Distress - Head Exam Head Exam: ATRAUMATIC, NORMAL INSPECTION, NORMOCEPHALIC - Eye Exam Eye Exam: EOMI, Normal appearance, PERRL Pupil Exam: NORMAL ACCOMODATION, PERRL - ENT Exam ENT Exam: Mucous Membranes Moist, Normal Exam - Neck Exam Neck Exam: Full ROM, Normal Inspection. absent: Lymphadenopathy - Respiratory Exam Respiratory Exam: Clear to Ausculation Bilateral, NORMAL BREATHING PATTERN - Cardiovascular Exam Cardiovascular Exam: REGULAR RHYTHM, +S1, +S2. absent: Murmur - GI/Abdominal Exam GI & Abdominal Exam: Soft, Tenderness, Normal Bowel Sounds. absent: Distended Additional comments: drain in place. No signs of infection around the drain. minimal light brown fluids in bag - Exam Exam: NORMAL INSPECTION - Extremities Exam Extremities Exam: Full ROM, Normal Capillary Refill, Normal Inspection. absent : Joint Swelling, Pedal Edema - Back Exam Back Exam: NORMAL INSPECTION - Neurological Exam Neurological Exam: Alert, Awake, CN II-XII Intact, Normal Gait, Oriented x3 - Psychiatric Exam Psychiatric exam: Normal Affect, Normal Mood - Skin Skin Exam: Dry, Intact, Normal Color, Warm Assessment and Plan - Assessment and Plan (Free Text) Assessment: Pelvic abscess, sepsis s/p hysterectomy Repeat CT results noted, no drainable collection as per IR Drain to remain in place while pt is admitted Continue antibiotics per ID Continue diet Monitor drain output Will DW surgical team <Lambert Bangura - Last Filed: 01/30/18 13:50> Objective - Vital Signs/Intake and Output Vital Signs (last 24 hours): Temp Pulse Resp BP Pulse Ox 97.9 F 89 18 92/61 L 96 01/30/18 12:03 01/30/18 12:03 01/30/18 12:03 01/30/18 12:03 01/30/18 12:03 - Medications Medications: Current Medications Acetaminophen (Tylenol 325mg Tab) 650 mg PO Q4 PRN PRN Reason: Pain, Mild (1-3) Last Admin: 01/30/18 11:47 Dose: 650 mg Piperacillin Sod/Tazobactam (Sod 3.375 gm/ Sodium Chloride) 100 mls @ 100 mls/ hr IVPB Q6 TAO PRN Reason: Protocol Last Admin: 01/30/18 10:14 Dose: 100 mls/hr Clindamycin Phosphate (Cleocin) 600 mg in 50 mls @ 50 mls/hr IVPB Q8 TAO PRN Reason: Protocol Last Admin: 01/30/18 10:06 Dose: 50 mls/hr Meropenem 1 gm/ Sodium (Chloride) 100 mls @ 100 mls/hr IVPB Q12 TAO PRN Reason: Protocol Last Admin: 01/30/18 10:08 Dose: 100 mls/hr Morphine Sulfate (Morphine) 4 mg IVP Q6 PRN PRN Reason: Pain, severe (8-10) Ondansetron HCl (Zofran Inj) 4 mg IVP Q4 PRN PRN Reason: Nausea/Vomiting Last Admin: 01/28/18 21:00 Dose: 4 mg - Labs Labs: 01/30/18 10:00 01/29/18 05:00 PT 13.6 Seconds (9.8-13.1) H 01/23/18 18:30 INR 1.2 (0.9-1.2) 01/23/18 18:30 APTT 28.4 Seconds (25.6-37.1) 01/23/18 18:30 Assessment and Plan - Assessment and Plan (Free Text) Plan: will keep drain one more day, CBC in AM
[2018-01-30] MEDS: Meropenem 1 GM in Sodium Chloride 0.9% 100 ML IVPB SCH ×2 (10:08→20:41)
[2018-01-30 10:44] LABS: HEMOGLOBIN 8.2 g/dL (12.0-16.0); MEAN CORPUSCULAR HEMOGLOBIN 25.4 pg (27.0-31.0); MEAN CORPUSCULAR HGB CONC 31.4 g/dL (33.0-37.0); RBC 3.23 Mil/uL (3.80-5.20); RED CELL DISTRIBUTION WIDTH 17.5 % (11.5-14.5); WHITE BLOOD COUNT 12.4 K/uL (4.8-10.8)
--- NOTE | 2018-01-30 13:39 | CP.PCM.PN ---
Subjective - Date & Time of Evaluation Date of Evaluation: 01/30/18 Time of Evaluation: 11:30 - Subjective Subjective: NO NEW COMPLAINTS NO ABDOMINAL PAIN Objective - Vital Signs/Intake and Output Vital Signs (last 24 hours): Temp Pulse Resp BP Pulse Ox 97.9 F 89 18 92/61 L 96 01/30/18 12:03 01/30/18 12:03 01/30/18 12:03 01/30/18 12:03 01/30/18 12:03 - Medications Medications: Current Medications Acetaminophen (Tylenol 325mg Tab) 650 mg PO Q4 PRN PRN Reason: Pain, Mild (1-3) Last Admin: 01/30/18 11:47 Dose: 650 mg Piperacillin Sod/Tazobactam (Sod 3.375 gm/ Sodium Chloride) 100 mls @ 100 mls/ hr IVPB Q6 TAO PRN Reason: Protocol Last Admin: 01/30/18 10:14 Dose: 100 mls/hr Clindamycin Phosphate (Cleocin) 600 mg in 50 mls @ 50 mls/hr IVPB Q8 TAO PRN Reason: Protocol Last Admin: 01/30/18 10:06 Dose: 50 mls/hr Meropenem 1 gm/ Sodium (Chloride) 100 mls @ 100 mls/hr IVPB Q12 TAO PRN Reason: Protocol Last Admin: 01/30/18 10:08 Dose: 100 mls/hr Morphine Sulfate (Morphine) 4 mg IVP Q6 PRN PRN Reason: Pain, severe (8-10) Ondansetron HCl (Zofran Inj) 4 mg IVP Q4 PRN PRN Reason: Nausea/Vomiting Last Admin: 01/28/18 21:00 Dose: 4 mg - Labs Labs: 01/30/18 10:00 01/29/18 05:00 PT 13.6 Seconds (9.8-13.1) H 01/23/18 18:30 INR 1.2 (0.9-1.2) 01/23/18 18:30 APTT 28.4 Seconds (25.6-37.1) 01/23/18 18:30 - Respiratory Exam Respiratory Exam: Clear to Ausculation Bilateral - Cardiovascular Exam Cardiovascular Exam: REGULAR RHYTHM, +S1, +S2 - Extremities Exam Extremities Exam: Normal Inspection - Additional Findings 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
[2018-01-31] MEDS: Clindamycin 600mg/50ml NS 600 MG/50 ML BAG IVPB SCH ×2 (00:46→09:26)
--- NOTE | 2018-01-31 08:01 | CP.PCM.PN ---
Subjective - Date & Time of Evaluation Date of Evaluation: 01/31/18 Time of Evaluation: 07:59 - Subjective Subjective: Surgery Pt seen and examined. No acute events. Denies fever, nausea, CP, SOB. TOlerating diet. + void. denies pain. Objective - Vital Signs/Intake and Output Vital Signs (last 24 hours): Temp Pulse Resp BP Pulse Ox 97.8 F 81 18 100/64 99 01/31/18 04:59 01/31/18 04:59 01/31/18 04:59 01/31/18 04:59 01/31/18 04:59 - Medications Medications: Current Medications Acetaminophen (Tylenol 325mg Tab) 650 mg PO Q4 PRN PRN Reason: Pain, Mild (1-3) Last Admin: 01/30/18 20:39 Dose: 650 mg Meropenem 1 gm/ Sodium (Chloride) 100 mls @ 100 mls/hr IVPB Q12 TAO PRN Reason: Protocol Last Admin: 01/30/18 20:41 Dose: 100 mls/hr Clindamycin Phosphate (Cleocin In Normal Saline) 600 mg in 50 mls @ 50 mls/hr IVPB Q8 TAO PRN Reason: Protocol Last Admin: 01/31/18 00:46 Dose: 50 mls/hr Morphine Sulfate (Morphine) 4 mg IVP Q6 PRN PRN Reason: Pain, severe (8-10) Ondansetron HCl (Zofran Inj) 4 mg IVP Q4 PRN PRN Reason: Nausea/Vomiting Last Admin: 01/31/18 05:19 Dose: 4 mg - Labs Labs: 01/30/18 10:00 01/29/18 05:00 PT 13.6 Seconds (9.8-13.1) H 01/23/18 18:30 INR 1.2 (0.9-1.2) 01/23/18 18:30 APTT 28.4 Seconds (25.6-37.1) 01/23/18 18:30 - Constitutional Appears: No Acute Distress - Head Exam Head Exam: ATRAUMATIC, NORMAL INSPECTION, NORMOCEPHALIC - Eye Exam Eye Exam: EOMI, Normal appearance, PERRL Pupil Exam: NORMAL ACCOMODATION, PERRL - ENT Exam ENT Exam: Mucous Membranes Moist, Normal Exam - Neck Exam Neck Exam: Full ROM, Normal Inspection. absent: Lymphadenopathy - Respiratory Exam Respiratory Exam: NORMAL BREATHING PATTERN - Cardiovascular Exam Cardiovascular Exam: REGULAR RHYTHM, +S1, +S2. absent: Murmur - GI/Abdominal Exam GI & Abdominal Exam: Soft. absent: Distended, Firm, Guarding, Rigid, Tenderness , Mass, Organomegaly Additional comments: Drain in place. No output overnight. No signs of infection on drain site. - Exam Exam: NORMAL INSPECTION - Extremities Exam Extremities Exam: Full ROM, Normal Capillary Refill, Normal Inspection. absent : Joint Swelling, Pedal Edema - Back Exam Back Exam: NORMAL INSPECTION - Neurological Exam Neurological Exam: Alert, Awake, CN II-XII Intact, Normal Gait, Oriented x3 - Psychiatric Exam Psychiatric exam: Normal Affect, Normal Mood - Skin Skin Exam: Dry, Intact, Normal Color, Warm Assessment and Plan - Assessment and Plan (Free Text) Assessment: Pelvic abscess, sepsis s/p hysterectomy Repeat CT results noted, no drainable collection as per IR Drain to remain in place while pt is admitted Continue antibiotics per ID Continue diet Monitor drain output Monitor CBC Possible DC today KARL Bangura
[2018-01-31 08:10] VITALS: BP 102/67; RESP 20; TEMP 97.9; O2SAT 100
[2018-01-31 08:33] VITALS: PULSE 100
[2018-01-31 08:53] LABS: BASO % 0.4 % (0.0-2.0); EOS # 0.2 K/uL (0.0-0.7); EOS % 1.7 % (0.0-4.0); LYMPH # 2.1 K/uL (1.0-4.3); MEAN CELL VOLUME 80.6 fl (81.0-99.0); MEAN CORPUSCULAR HEMOGLOBIN 25.8 pg (27.0-31.0); MEAN PLATELET VOLUME 7.2 fl (7.2-11.7); MONO # 1.1 K/uL (0.0-0.8); MONO % 9.1 % (0.0-10.0); NEUT # 8.7 K/uL (1.8-7.0); NEUT % 71.8 % (50.0-75.0); NRBC % 0.1 % (0.0-0.0); RBC 3.51 Mil/uL (3.80-5.20); RED CELL DISTRIBUTION WIDTH 16.8 % (11.5-14.5)
[2018-01-31] MEDS: Meropenem 1 GM in Sodium Chloride 0.9% 100 ML IVPB SCH ×2 (09:15→09:27)
--- NOTE | 2018-01-31 09:30 | CP.PCM.PN ---
Subjective - Date & Time of Evaluation Date of Evaluation: 01/31/18 Time of Evaluation: 09:20 - Subjective Subjective: Denies SOB, chest or leg pains Denies N/V, c/F Voiding well and had bm + Objective - Vital Signs/Intake and Output Vital Signs (last 24 hours): Temp Pulse Resp BP Pulse Ox 97.9 F 100 H 20 102/67 100 01/31/18 08:00 01/31/18 08:30 01/31/18 08:00 01/31/18 08:00 01/31/18 08:00 - Medications Medications: Current Medications Acetaminophen (Tylenol 325mg Tab) 650 mg PO Q4 PRN PRN Reason: Pain, Mild (1-3) Last Admin: 01/30/18 20:39 Dose: 650 mg Meropenem 1 gm/ Sodium (Chloride) 100 mls @ 100 mls/hr IVPB Q12 TAO PRN Reason: Protocol Last Admin: 01/31/18 09:27 Dose: Not Given Clindamycin Phosphate (Cleocin In Normal Saline) 600 mg in 50 mls @ 50 mls/hr IVPB Q8 TAO PRN Reason: Protocol Last Admin: 01/31/18 09:26 Dose: Not Given Morphine Sulfate (Morphine) 4 mg IVP Q6 PRN PRN Reason: Pain, severe (8-10) Ondansetron HCl (Zofran Inj) 4 mg IVP Q4 PRN PRN Reason: Nausea/Vomiting Last Admin: 01/31/18 05:19 Dose: 4 mg - Labs Labs: 01/31/18 08:30 01/29/18 05:00 PT 13.6 Seconds (9.8-13.1) H 01/23/18 18:30 INR 1.2 (0.9-1.2) 01/23/18 18:30 APTT 28.4 Seconds (25.6-37.1) 01/23/18 18:30 - Head Exam Head Exam: ATRAUMATIC - Neck Exam Neck Exam: Full ROM - Respiratory Exam Respiratory Exam: NORMAL BREATHING PATTERN - Cardiovascular Exam Cardiovascular Exam: REGULAR RHYTHM - GI/Abdominal Exam Additional comments: soft ND, no rebound no guarding depressible Drain was removed and incision clean and dry no active bleeding suppt or discharge - Extremities Exam Extremities Exam: Full ROM Additional comments: no leg edema or calf tenderness - Neurological Exam Neurological Exam: Alert, Awake, Oriented x3 Assessment and Plan (2) Pelvic abscess in female Status: Acute - Assessment and Plan (Free Text) Assessment: improved Plan: had discussed with ID and surgery will D/C home on po Bactrim DS for 10 days and follow up in office Wed/ Instructions given increase po fluids and ambulation
--- NOTE | 2018-01-31 09:36 | CP.PCM.DIS ---
Provider - Provider Date of Admission: 01/23/18 16:34 Attending physician: Bradley Ware MD Consults: Cardiology, surgical, ID and IR Time Spent in preparation of Discharge (in minutes): 10 Diagnosis - Discharge Diagnosis (1) Abdominal pain Status: Acute (2) Pelvic abscess in female Status: Acute (3) Sepsis Status: Acute (4) Anemia Status: Chronic Hospital Course - Lab Results Lab Results: Micro Results 01/23/18 16:45 Blood-Venous Blood Culture - Final NO GROWTH AFTER 5 DAYS 01/23/18 16:45 Blood-Venous Gram Stain - Final TEST NOT PERFORMED 01/23/18 16:45 Blood-Venous Blood Culture - Final NO GROWTH AFTER 5 DAYS 01/23/18 16:45 Blood-Venous Gram Stain - Final TEST NOT PERFORMED 01/25/18 07:00 Abscess - Pelvic Gram Stain - Final 01/25/18 07:00 Abscess - Pelvic Wound Culture - Final Klebsiella Pneumoniae Ssp Pneu Most Recent Lab Values WBC 12.1 K/uL (4.8-10.8) H 01/31/18 08:30 RBC 3.51 Mil/uL (3.80-5.20) L 01/31/18 08:30 Hgb 9.0 g/dL (12.0-16.0) L 01/31/18 08:30 Hct 28.3 % (34.0-47.0) L 01/31/18 08:30 MCV 80.6 fl (81.0-99.0) L 01/31/18 08:30 MCH 25.8 pg (27.0-31.0) L 01/31/18 08:30 MCHC 32.0 g/dL (33.0-37.0) L 01/31/18 08:30 RDW 16.8 % (11.5-14.5) H 01/31/18 08:30 Plt Count 1044 K/uL (130-400) H* 01/31/18 08:30 MPV 7.2 fl (7.2-11.7) 01/31/18 08:30 Neut % (Auto) 71.8 % (50.0-75.0) 01/31/18 08:30 Lymph % (Auto) 17.0 % (20.0-40.0) L 01/31/18 08:30 Foster % (Auto) 9.1 % (0.0-10.0) 01/31/18 08:30 Eos % (Auto) 1.7 % (0.0-4.0) 01/31/18 08:30 Baso % (Auto) 0.4 % (0.0-2.0) 01/31/18 08:30 Neut # (Auto) 8.7 K/uL (1.8-7.0) H 01/31/18 08:30 Lymph # (Auto) 2.1 K/uL (1.0-4.3) 01/31/18 08:30 Foster # (Auto) 1.1 K/uL (0.0-0.8) H 01/31/18 08:30 Eos # (Auto) 0.2 K/uL (0.0-0.7) 01/31/18 08:30 Baso # (Auto) 0.0 K/uL (0.0-0.2) 01/31/18 08:30 Neutrophils % (Manual) 81 % (42-75) H 01/23/18 09:45 Band Neutrophils % 7 % (0-2) H 01/23/18 09:45 Lymphocytes % (Manual) 4 % (20-50) L 01/23/18 09:45 Monocytes % (Manual) 7 % (0-10) 01/23/18 09:45 Basophils % (Manual) 1 % (0-2) 01/23/18 09:45 Platelet Estimate Increased (NORMAL) H 01/23/18 09:45 Large Platelets Present 01/23/18 09:45 Anisocytosis (manual) Slight 01/23/18 09:45 PT 13.6 Seconds (9.8-13.1) H 01/23/18 18:30 INR 1.2 (0.9-1.2) 01/23/18 18:30 APTT 28.4 Seconds (25.6-37.1) 01/23/18 18:30 pO2 16 mm/Hg (30-55) L 01/23/18 16:11 VBG pH 7.39 (7.32-7.43) 01/23/18 16:11 VBG pCO2 41 mmHg (40-60) 01/23/18 16:11 VBG HCO3 23.3 mmol/L 01/23/18 16:11 VBG Total CO2 26.1 mmol/L (22-28) 01/23/18 16:11 VBG O2 Sat (Calc) 18.0 % (40-65) L 01/23/18 16:11 VBG Base Excess -0.2 mmol/L (0.0-2.0) L 01/23/18 16:11 VBG Potassium 4.0 mmol/L (3.6-5.2) 01/23/18 16:11 Sodium 133.0 mmol/L (132-148) 01/23/18 16:11 Chloride 100.0 mmol/L (98-107) 01/23/18 16:11 Glucose 150 mg/dL (65-105) H 01/23/18 16:11 Lactate 2.6 mmol/L (0.7-2.1) H 01/23/18 16:11 FiO2 21.0 % 01/23/18 16:11 Sodium 137 mmol/l (132-148) 01/29/18 05:00 Potassium 3.8 MMOL/L (3.6-5.0) 01/29/18 05:00 Chloride 99 mmol/L (98-107) 01/29/18 05:00 Carbon Dioxide 28 mmol/L (22-30) 01/29/18 05:00 Anion Gap 14 (10-20) 01/29/18 05:00 BUN 4 mg/dl (7-17) L 01/29/18 05:00 Creatinine 0.7 mg/dl (0.7-1.2) 01/29/18 05:00 Est GFR ( Amer) > 60 01/29/18 05:00 Est GFR (Non-Af Amer) > 60 01/29/18 05:00 POC Glucose (mg/dL) 109 mg/dL (65-110) 01/27/18 16:40 Random Glucose 107 mg/dL (65-105) H 01/29/18 05:00 Calcium 8.8 mg/dL (8.4-10.2) 01/29/18 05:00 Total Bilirubin 0.3 mg/dl (0.2-1.3) 01/29/18 05:00 AST 42 U/L (14-36) H 01/29/18 05:00 ALT 65 U/L (9-52) H D 01/29/18 05:00 Alkaline Phosphatase 145 U/L (38-126) H 01/29/18 05:00 Total Protein 6.9 G/DL (6.3-8.2) 01/29/18 05:00 Albumin 3.1 g/dL (3.5-5.0) L 01/29/18 05:00 Globulin 3.8 gm/dL (2.2-3.9) 01/29/18 05:00 Albumin/Globulin Ratio 0.8 (1.0-2.1) L 01/29/18 05:00 Lipase 37 U/L (23-300) 01/23/18 09:45 Venous Blood Potassium 4.0 mmol/L (3.6-5.2) 01/23/18 16:11 - Hospital Course Hospital Course: Admitted for IV antibiotics and IR placed drain in pelvic abcess WBC was high but improved and pt responded to IV antibiotics and H/H stable Discharge Exam - Head Exam Head Exam: ATRAUMATIC - Respiratory Exam Respiratory Exam: NORMAL BREATHING PATTERN - Cardiovascular Exam Cardiovascular Exam: REGULAR RHYTHM - GI/Abdominal Exam GI & Abdominal Exam: Normal Bowel Sounds, Soft - Extremities Exam Extremities exam: full ROM Additional comments: no edema or calf tenderness - Neurological Exam Neurological exam: Alert, Normal Gait, Oriented x3 - Psychiatric Exam Psychiatric exam: Normal Affect, Normal Mood Discharge Plan - Follow Up Plan Condition: FAIR Additional Instructions: pelvic and bed rest and rx for Bactrim DS given and will follow in office 3 days Instructions given
[2018-01-31 10:50] LABS: WHITE BLOOD COUNT 12.1 K/uL (4.8-10.8)
[2018-01-31] MEDS ORDERED: Clindamycin 600mg/50ml NS 600 MG/50 ML BAG IVPB SCH (17:00)
--- NOTE | 2018-02-01 13:51 | CT ---
PROCEDURE: Date of procedure: 01/23/2018 Procedure: 1. Pelvic abscess drainage with CT guidance, CPT 64229 Medications: The patient received IV sedation administered by anesthesiologist Radiation: 556.97 mGy-cm HISTORY: pelvic abscess. TECHNIQUE: Following informed consent procedure time-out, non contrast CT was performed which showed a complex anterior pelvic collection containing air. The skin localizer was placed on the patient's abdomen and a repeat CT scan performed. The skin was marked, prepped, and draped in the usual sterile fashion. Under CT guidance, a MJ[facility] drainage catheter was advanced into the collection. Upon return of purulent drainage, the catheter exchanged over an 035 guidewire and the tract was dilated to accommodate aN 8 Japanese pigtail drainage catheter formed within the collection. The position of the 8 Fr drainage catheter was confirmed with repeat CT scan. 20 cubic centimeters of purulent drainage was removed and sent for culture and sensitivity. The catheter was secured the patient's skin. A dressing was applied. IMPRESSION: CT-guided abscess drainage within the placement of a 8 Japanese drainage catheter with abscess. The fluid specimen was sent for culture and sensitivity.
== END 2018-01-31 11:18 | disposition home or self-care (01) | DRG 871 ==
LOC: H.ER 08:34 → H.ERHOLD 16:34 → H.TEL 19:04
PROVIDERS: ADMIT Specialist; ATTEND Specialist
PROC: 0W9J30Z Drainage of Pelvic Cavity with Drainage Device, Percutaneous Approach (ICD-10-PCS; principal; 2018-01-23)
DX: A41.9 Sepsis, unspecified organism (principal); K65.9 Peritonitis, unspecified; E78.00 Pure hypercholesterolemia, unspecified; E78.5 Hyperlipidemia, unspecified; E86.0 Dehydration; B96.1 Klebsiella pneumoniae [K. pneumoniae] as the cause of diseases classified elsewhere; N73.9 Female pelvic inflammatory disease, unspecified; Z90.710 Acquired absence of both cervix and uterus; Z98.51 Tubal ligation status; Z98.891 History of uterine scar from previous surgery; D50.9 Iron deficiency anemia, unspecified; D72.829 Elevated white blood cell count, unspecified; K64.9 Unspecified hemorrhoids; Z79.899 Other long term (current) drug therapy; R00.0 Tachycardia, unspecified